=== PATIENT | female | born 1980 | race Caucasian/White ===

== ENCOUNTER 2016-05-27 18:37 | Emergency (ER) | payer OTHER ==
[2016-05-27 19:40] VITALS: BP 119/69
--- NOTE | 2016-05-27 19:55 | UC ---
Respiratory Complaint HPI - HPI Summary HPI Summary: 36 yo female with a 2week hx of nasal congestion/sinus pain/cough/sore throat bilateral ear pressure/popping no n/v/d - History of Current Complaint Chief Complaint: UCGeneralIllness Stated Complaint: SORE THROAT/COUGH Time Seen by Provider: 05/27/16 19:46 Hx Last Menstrual Period: 05/23/16 - Allergies/Home Medications Allergies/Adverse Reactions: Allergies Allergy/AdvReac Type Severity Reaction Status Date / Time Imipramine Allergy Severe shaking Verified 05/27/16 19:40 Quetiapine [From Seroquel] Allergy Shakes Verified 05/27/16 19:40 PMH/Surg Hx/FS Hx/Imm Hx Endocrine History Of: Denies: Diabetes, Thyroid Disease Cardiovascular History Of: Denies: Cardiac Disorders, Hypertension Respiratory History Of: Denies: Asthma Psychological History Of: Reports: Anxiety, Depression - Surgical History Surgical History: Yes Surgery Procedure, Year, and Place: tubal ligation. 2 hernia repairs. 2 termination of pregnancies - Family History Known Family History: Positive: Diabetes, Other - asthma in the family Negative: Cardiac Disease - Social History Alcohol Use: Occasionally Substance Use Type: None Smoking Status (MU): Light Every Day Tobacco Smoker Type: Cigarettes Amount Used/How Often: 3-5 cigarettes / day Have You Smoked in the Last Year: Yes - Immunization History Most Recent Influenza Vaccination: "A few years ago" Most Recent Tetanus Shot: "Unable to recall" Most Recent Pneumonia Vaccination: NONE Review of Systems Constitutional: Fatigue Skin: Negative Eyes: Negative ENT: Sore Throat, Ear Ache, Nasal Discharge Respiratory: Cough Cardiovascular: Negative Gastrointestinal: Negative Genitourinary: Negative Motor: Negative Neurovascular: Negative Musculoskeletal: Negative Neurological: Negative Psychological: Negative All Other Systems Reviewed And Are Negative: Yes Physical Exam Triage Information Reviewed: Yes Appearance: Well-Appearing, No Pain Distress, Well-Nourished Vital Signs: Initial Vital Signs Temp 99.0 F 05/27/16 19:36 Pulse 76 05/27/16 19:36 Resp 16 05/27/16 19:36 BP 119/69 05/27/16 19:36 Pulse Ox 99 05/27/16 19:36 Vital Signs Reviewed: Yes Eyes: Positive: Conjunctiva Clear ENT: Positive: Hearing grossly normal, Pharynx normal, Nasal congestion, Nasal drainage, TM bulging, Other: - bilateral max and ethmoid sinus tenderness. Negative: Tonsillar swelling, Tonsillar exudate, Trismus, Muffled/hoarse voice Neck: Positive: Supple, Nontender, No Lymphadenopathy Respiratory: Positive: Lungs clear, Normal breath sounds, No respiratory distress Cardiovascular: Positive: RRR, No Murmur, Pulses Normal Musculoskeletal: Positive: ROM Intact, No Edema Neurological Exam: Normal Neurological: Positive: Alert, Muscle Tone Normal Psychological Exam: Normal Skin Exam: Normal UC Diagnostic Evaluation - Laboratory O2 Sat by Pulse Oximetry: 99 Respiratory Course/Dx - Differential Dx/Diagnosis Provider Diagnoses: acute sinusitis Discharge - Discharge Plan Condition: Stable Disposition: HOME Prescriptions: Cefuroxime Axetil [Ceftin 250 MG] 250 mg PO BID #20 tab Fluticasone NASAL SPRAY 50MCG* [Flonase NASAL SPRAY 50MCG*] 2 spray BOTH NARES DAILY #1 btl Patient Education Materials: Sinusitis (ED) Referrals: Katlyn Leal MD [Primary Care Provider] - 6 Days (if not better)
== END 2016-05-27 20:04 | disposition home or self-care (01) ==
LOC: UCCORT 18:37
DX: J01.90 Acute sinusitis, unspecified (principal); F17.210 Nicotine dependence, cigarettes, uncomplicated
CPT/HCPCS: 99212; G0463

== ENCOUNTER 2017-02-12 15:52 | Emergency (ER) | payer OTHER ==
--- NOTE | 2017-02-12 17:08 | UC ---
Throat Pain/Nasal Waylon HPI - HPI Summary HPI Summary: Pt c/o right side ROQUE, nasal congestion, sinus pressure, cough and PND X 1 week. - History of Current Complaint Chief Complaint: UCRespiratory Stated Complaint: SINUS,COUGH Time Seen by Provider: 02/12/17 17:00 Hx Obtained From: Patient Hx Last Menstrual Period: 01/30/17 ?: No Onset/Duration: Gradual Onset, Lasting Days - 7, Still Present, Worse Since - onset Severity: Moderate Associated Signs & Symptoms: Positive: Fever - Epiglottits Risk Factors Epiglottis Risk Factors: Negative - Allergies/Home Medications Allergies/Adverse Reactions: Allergies Allergy/AdvReac Type Severity Reaction Status Date / Time Imipramine Allergy Severe shaking Verified 02/12/17 15:57 Quetiapine [From Seroquel] Allergy Shakes Verified 02/12/17 15:57 Home Medications: Home Medications Ketorolac TAB * [Toradol TAB *] 10 mg PO ONCE 02/12/17 [History Confirmed ] PMH/Surg Hx/FS Hx/Imm Hx Previously Healthy: Yes - Surgical History Surgical History: Yes Surgery Procedure, Year, and Place: tubal ligation. 2 hernia repairs. 2 termination of pregnancies - Family History Known Family History: Positive: Diabetes, Other - asthma in the family Negative: Cardiac Disease - Social History Occupation: Works From/At Home Lives: With Family Alcohol Use: None Substance Use Type: None Smoking Status (MU): Light Every Day Tobacco Smoker Type: Cigarettes Amount Used/How Often: 1/4 PPD Length of Time of Smoking/Using Tobacco: Since Age 11 Have You Smoked in the Last Year: Yes - Immunization History Most Recent Influenza Vaccination: Not the 2016/2017 Season Most Recent Tetanus Shot: "Unable to recall" Most Recent Pneumonia Vaccination: NONE Review of Systems Constitutional: Chills Skin: Negative Eyes: Negative ENT: Sinus Congestion, Sinus Pain/Tenderness Respiratory: Cough Cardiovascular: Negative Gastrointestinal: Negative Genitourinary: Negative Motor: Negative Neurovascular: Negative Musculoskeletal: Negative Neurological: Headache Psychological: Negative Is Patient Immunocompromised?: No All Other Systems Reviewed And Are Negative: Yes Physical Exam Triage Information Reviewed: Yes Appearance: Ill-Appearing Vital Signs: Initial Vital Signs Temp 99.2 F 02/12/17 15:55 Pulse 110 02/12/17 15:55 Resp 18 02/12/17 15:55 BP 133/75 02/12/17 15:55 Pulse Ox 98 02/12/17 15:55 Vital Signs Reviewed: Yes Eye Exam: Normal, Other - PERRLA EOMI ENT: Positive: Nasal congestion, Other: - Sinus tenderness, right frontal Dental Exam: Normal Neck exam: Normal Respiratory Exam: Normal Cardiovascular Exam: Normal Cardiovascular: Positive: Tachycardia Musculoskeletal Exam: Normal Neurological Exam: Normal Psychological Exam: Normal Skin Exam: Normal Throat Pain/Nasal Course/Dx - Differential Dx/Diagnosis Differential Diagnosis/HQI/PQRI: Sinusitis, URI Provider Diagnoses: Sinusitis. cough Discharge - Discharge Plan Condition: Stable Disposition: HOME Prescriptions: Albuterol HFA INHALER* [Ventolin HFA Inhaler*] 1 - 2 puff INH Q6H PRN #1 mdi PRN Reason: Sob/Wheezing Amoxicillin PO (*) [Amoxicillin 875 MG (*)] 875 mg PO Q12H #20 tab Benzonatate CAP* [Tessalon 100 MG CAP*] 100 mg PO Q8H PRN #21 cap PRN Reason: Cough predniSONE TAB* [Deltasone TAB*] 30 mg PO DAILY #9 tab Patient Education Materials: Sinusitis (ED) Referrals: Katlyn Leal MD [Primary Care Provider] - If Needed
[2017-02-12] MEDS ORDERED: Ketorolac INJ* 60 MG/2 ML VIAL IM ONE (17:14)
[2017-02-12 18:07] VITALS: BP 144/93
== END 2017-02-12 18:10 | disposition home or self-care (01) ==
LOC: UCCORT 15:52
DX: J32.8 Other chronic sinusitis (principal); R05 Cough; F17.210 Nicotine dependence, cigarettes, uncomplicated; Z88.8 Allergy status to other drugs, medicaments and biological substances
CPT/HCPCS: 99212; G0463; J1885

== ENCOUNTER 2017-04-11 21:36 | Emergency (ER) | payer OTHER ==
[2017-04-11 21:50] VITALS: BP 131/85
[2017-04-11] MEDS ORDERED: Amoxicillin/Clavulanate TAB* 875 MG PO ONE (22:13)
[2017-04-11] MEDS ORDERED: LoraTADine TAB(NF) 10 MG TAB (AUTOSUB to CETIRIZINE) PO ONE (22:13)
[2017-04-11] MEDS ORDERED: Lidocaine 2% VISCOUS* 15 ML UDC SWISH SPIT ONE (22:13)
--- NOTE | 2017-04-11 22:23 | UC ---
Throat Pain/Nasal Waylon HPI - History of Current Complaint Chief Complaint: UCGeneralIllness Stated Complaint: COUGH,SORE THROAT Time Seen by Provider: 04/11/17 21:53 Hx Obtained From: Patient Hx Last Menstrual Period: 04/09/17 Onset/Duration: Sudden Onset Severity: Moderate Pain Scale Used: 0-10 Numeric - 5 Cough: Nonproductive - Allergies/Home Medications Allergies/Adverse Reactions: Allergies Allergy/AdvReac Type Severity Reaction Status Date / Time Imipramine Allergy Severe shaking Verified 04/11/17 21:50 Quetiapine [From Seroquel] Allergy Shakes Verified 04/11/17 21:50 Home Medications: Home Medications Dextromethorphan-Guaifenesin [Guaifenesin/Dextromethorp 20-400 mg] 1 tab PO ONCE 04/11/17 [History Confirmed 04/11/17] Diphenhydramine HCl [Benadryl Allergy 25 MG CAP] 50 mg PO ONCE 04/11/17 [ History Confirmed 04/11/17] Naproxen Sodium [Naproxen Sodium 220 mg cap] 440 mg PO DAILY 04/11/17 [History Confirmed 04/11/17] PMH/Surg Hx/FS Hx/Imm Hx Previously Healthy: Yes - Surgical History Surgical History: Yes Surgery Procedure, Year, and Place: tubal ligation. 2 hernia repairs. 2 termination of pregnancies - Family History Known Family History: Positive: Diabetes, Other - asthma in the family Negative: Cardiac Disease - Social History Alcohol Use: Rare Substance Use Type: None Smoking Status (MU): Light Every Day Tobacco Smoker Type: Cigarettes Amount Used/How Often: 1/4 PPD Length of Time of Smoking/Using Tobacco: Since Age 11 Have You Smoked in the Last Year: Yes - Immunization History Most Recent Influenza Vaccination: Not the 2017/2017 Season Most Recent Tetanus Shot: "Unable to recall" Most Recent Pneumonia Vaccination: NONE Review of Systems All Other Systems Reviewed And Are Negative: Yes Physical Exam Triage Information Reviewed: Yes Vital Signs: Initial Vital Signs Temp 36.6 C 04/11/17 21:44 Pulse 82 04/11/17 21:44 Resp 28 04/11/17 21:44 BP 131/85 04/11/17 21:44 Pulse Ox 98 04/11/17 21:44 Vital Signs Reviewed: Yes Eye Exam: Normal ENT: Positive: Pharyngeal erythema, Nasal congestion, Nasal drainage, Sinus tenderness Dental Exam: Normal Neck exam: Normal Neck: Positive: 1 Respiratory Exam: Normal Cardiovascular Exam: Normal Abdominal Exam: Normal Musculoskeletal Exam: Normal Neurological Exam: Normal Psychological Exam: Normal Skin Exam: Normal Throat Pain/Nasal Course/Dx - Differential Dx/Diagnosis Provider Diagnoses: sinusitis Discharge - Discharge Plan Condition: Stable Disposition: HOME Prescriptions: Amoxicillin/Clavulanate TAB* [Augmentin TAB 875*] 875 mg PO BID #20 tab LoraTADine TAB(NF) [Claritin 10 MG TAB(NF)] 10 mg PO DAILY #30 tab Magic M W2 Edvin/Maal/Nyst/Lido* 5 ml SWISH SPIT QID PRN #120 ml PRN Reason: Pain Patient Education Materials: Pharyngitis (ED) Referrals: Katlyn Leal MD [Primary Care Provider] -
== END 2017-04-11 22:22 | disposition home or self-care (01) ==
LOC: UCCORT 21:36
DX: J32.9 Chronic sinusitis, unspecified (principal); Z72.0 Tobacco use
CPT/HCPCS: 87651; 99212; A9270-GY; G0463

== ENCOUNTER 2018-02-02 15:08 | Emergency (ER) | payer OTHER ==
--- OUTSIDE RECORDS SUMMARY | 2018-02-02 15:27 | XMS REPORT ---
:1980 External Reference #:[id number] Author Organization [employer] Address [address] [facility] [place] [address] Phone [phone] Care Team Providers Name Role Phone Rc Galvez FNP Primary Care Physician Unavailable Payers Type Date Identification Numbers Payment Provider Subscriber Commercial Effective: Policy Number: Truman Payne 2010 [id number] Group Number: [id number] [address] PayID: [id number] [place] [address] Problems Date Description Provider Status Onset: 04/25/2014 Refractory migraine Arielle Chau M.D. 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 Cigarette Use Current Cigarette Smoker 5-10 Cigarettes Daily ETOH Use Denies alcohol use Recreational Drug Use Denies Drug Use Smoking Light tobacco smoker (10 or fewer cigarettes/day) Daily Caffeine Consumes on average 5 cups of regular coffee per day Exercise Type/Frequency Does not exercise Allergies, Adverse Reactions, Alerts Date Description Reaction Status Severity Comments 01/10/2014 Imipramine active 01/20/2017 Seasonal And Environmental active 02/02/2018 Seroquel active Medications Medication Date Status Form Strength Qnty SIG Indications Ordering Provider Naratriptan HCL 10/10 Active Tablets 2.5mg 12tab 1 tab by G43.919 Arielle /Vincent s mouth as Cow[place], needed for M.D. migraine, may repeat in 4 hours. max of 2 tabs per 24 hours; maximum 2 days a week. Ketorolac 10/26 Active Tablets 10mg 10tab take 1 by Arielle Tromethamine s mouth every [place], 8 hours as M.D. needed for migraine. take with food. do not take with other Nsaid Ondansetron HCL 05/26 Active Tablets 4mg 60tab one to two Arielle s by mouth [place], every 8 M.D. hours as needed for nausea Trazodone HCL Active Tablets 50mg 1/2-1 tabs Unknown / po qhs Clonidine HCL Active Tablets 0.1mg 1 by mouth Unknown three a day Chlorpromazine Active Tablets 25mg one tablet Unknown bid prn Topiramate 05/26 Hx Tablets 25mg 120ta take 1 by G43.9 Arielle bs mouth at [place], - night x 7 M.D. increase by 1 tablet every 7 days to maximum of 100mg at bedtime Almotriptan 01/25 Hx Tablets 6.25mg 12tab take 1 by G43.91 Arielle Malate s mouth if [place], - needed for M.D. 01/27 migraine, may repeat after 2 hours; maximum 2 in 24 hours, maximum 2 days a week Frovatriptan 01/20 Hx Tablets 2.5mg 12tab take 1 by G43. Arielle Succinate s mouth as [place], - needed for M.D. 01/25 migraine, may repeat after 2 hours, maximum 2 in 24 hours. Tizanidine HCL 07/09 Hx Capsules 4mg 60cap take 1 G43. Arielle s capsule by Isac, - mouth at M.D. 07/09 bedtime 2-3 days, then may increase to 2 tablets at bedtime Tizanidine HCL 07/09 Hx Capsules 2mg 60cap take 1 to by G43. Arielle s mouth at bed Eloydery, - time, if no M.D. 05/25 after 2-3 days, may increase to 2 tablets at night time.-takes 1 po prn Relpax 03/30 Hx Tablets 40mg 6tabs take 1 G43.9 Arielle tablet by Isac, - mouth as M.D. 01/20 needed for migraine may repeat 1 time after 2 hours (max 2 days per week) Topamax 02/08 Hx Tablets 50mg 30tab 1 by mouth Jenna M. s every night Shell, - at bedtime M.D. 05/25 (with 100mg /2017 pills Ketorolac 02/08 Hx Tablets 10mg 10tab take 1 by Eva Tromethamine s mouth every Gnadt, [employer] - 8 hours as 07/24 needed for migraine. take with food. Not Taking While Taking Naprosyn Topamax 09/09 Hx Tablets 100mg 60tab 1 by mouth Jenna M. s twice a day Shell, - M.D. 05/25 Topamax 09/09 Hx Tablets 25mg 30tab 1 po qhs, Arielle s with 100mg [place], - tab M.D. 02/08 Ketorolac 05/03 Hx Tablets 10mg 10tab take 1 by Kiran Celestinmethamine s mouth every Travis, - 6 hours as M.D. 05/03 needed for migraine. take with food. Topamax 03/03 Hx Tablets 50mg 150ta Take two bs tabs po each Cow[place]y, - morning and M.D. 09/09 three tabs /2012 po qhs Oxycodone/Acetami Hx Tablets 5-325mg Unknown nophen / - 06/23 Cetirizine HCL Hx Tablets 10mg 1 tab po qhs Nash, /0000 Nidia López MD 12/02 Naproxen Hx Tablets 500mg Nash, /0000 Nidia López MD 07/24 Pantoprazole Hx Tablets 40mg 60tab 1 by mouth Jose Armando Cao / DR gray twice daily Nidia López MD 07/02 Chlorpromazine Hx Tablets 25mg 1 po in the Unknown HCL / Am and 2 po - in the PM. 05/21 Clonazepam 00/00 Hx Tablets 0.5mg Unknown /0000 - 06/23 Sertraline HCL Hx Tablets 100mg 2 po qd Unknown / - 11/06 Azithromycin 00/00 Hx Tablets 250mg Cao, /0000 Nidia López MD 06/23 Trazodone HCL 00/00 Hx Tablets 150mg Unknown /0000 - 06/23 Topiramate 00/00 Hx Tablets 50mg [place], /0000 MD Arielle - 06/23 Cyclobenzaprine 00/ Hx Tablets 5mg Cao, HCL / Nidia López MD 06/23 Topiramate 00/00 Hx Tablets 100mg [place], /0000 MD Arielle - 06/23 Tramadol HCL 00/00 Hx Tablets 50mg Cao, /0000 Nidia López MD 06/23 Chlorpromazine 00/00 Hx Tablets 25mg Unknown HCL /0000 - 06/23 Chlorpromazine 00/00 Hx Tablets 50mg Unknown HCL 0000 - 06/23 Topiramate 00/00 Hx Tablets 25mg [place], /0000 MD Arielle - 06/23 Sertraline HCL 00/00 Hx Tablets 50mg Unknown - 06/23 Ketorolac 00/ Hx Tablets 10mg [place], Tromethamine / MD Arielle - 06/23 Trazodone HCL 00/00 Hx Tablets 50mg Unknown - 06/23 Fluconazole 00/00 Hx Tablets 150mg Unknown - 11/06 Terconazole / Hx Cream 0.8% [place], MD Arielle - 06/23 Ventolin HFA / Hx Aerosol 108(90Bas Farenga, /0000 e) POLY Scott - mcg/Act 08/19 Extra Action 00/ Hx Syrup 100-10mg/ enga, Cough /0000 5ML POLY Scott - 06/23 Amoxicillin/Clavu /00 Hx Tablets 875-125mg cynthiaa, lanate Potassium /0000 POLY Scott - 06/23 Ziprasidone HCL 00/ Hx Capsules 20mg Unknown / - 06/23 Topiramate 00/00 Hx Tablets 100mg Unknown / - 06/23 Topiramate 00/00 Hx Tablets 25mg Unknown / - 06/23 Zolpidem Tartrate 00/00 Hx Tablets 10mg Unknown /0000 - 01/10 Omeprazole 00/00 Hx Capsules 20mg Unknown /0000 - 06/23 Oxycodone/Acetami 00/00 Hx Tablets 5-325mg take 1 to 2 Unknown nophen /0000 tablets by - mouth every 01/10 4 hours needed for pain maximum Ra One Daily 00/00 Hx Tablets Unknown Womens/Vitamin /0000 D-3 - 12/02 Ra One Daily 00/00 Hx Tablets Wilberert, Chongs/Vitamin /0000 POLY Nix D-3 - 06/23 Divalproex Sodium 00/00 Hx Tablets 500mg Unknown ER /0000 ER 24HR - 06/23 Cyclobenzaprine 00/00 Hx Tablets 5mg take 1 Unknown HCL /0000 tablet three - times a day 01/10 if needed Clonazepam 00/ Hx Tablets 0.5mg take 1 Unknown /0000 tablet po - tid prn 11/06 Ziprasidone HCL 00/00 Hx Capsules 80mg Eloydery, /0000 MD Arielle - 06/23 Ziprasidone HCL 00/00 Hx Capsules 80mg take 1 Unknown /0000 capsule by - mouth twice 01/10 a Haloperidol 00/00 Hx Tablets 1mg Unknown /0000 - 06/23 Haloperidol 00/00 Hx Tablets 1mg Unknown /0000 - 07/24 Haloperidol 00/00 Hx Tablets 5mg Vanckert, /0000 POLY Nix - 06/23 Haloperidol 00/00 Hx Tablets 5mg Unknown /0000 - 07/24 Divalproex Sodium 00/00 Hx Tablets 500mg take 2 Unknown ER /0000 ER 24HR tablets - every 01/10 morning and 3 tablets every evening Diphenhydramine 00/00 Hx Capsules 25mg take 1 Unknown HCL /0000 capsule once - daily 01/10 Diphenhydramine 00/00 Hx Capsules 25mg Wilberert, HCL /0000 POLY Nix - 06/23 Tramadol HCL 00/00 Hx Tablets 50mg take 1-2 Cow[place]y, /0000 tablets MD Arielle - every 6 / hours needed for pain maximum daily dose o Omeprazole 00/00 Hx Capsules 40mg Unknown /0000 - 06/23 Omeprazole 00/00 Hx Capsules 40mg Cao, / DR Nidia López MD 06/23 Cyclobenzaprine Hx Tablets 5mg take one at Unknown HCL /0000 bedtime as - needed 08/19 Propranolol HCL Hx Tablets 10mg 3 po at Unknown /0000 night.. - 05/21 Bupropion HCL ER Hx Tablets 300mg 1 po in the Unknown (SR) /0000 ER 12HR Am - 05/25 Hydroxyzine Hx Capsules 50mg Take One Unknown Pamoate /0000 Capsule By - Mouth Twice 05/25 A Day as /2018 Needed Buspirone HCL Hx Tablets 5mg 1 by mouth Unknown /0000 twice a day - 10/14 Medications Administered in Office Medication Date Status Form Strength Qnty SIG Indications Ordering Provider Injection 05/26 Administered Injection Arielle Onabotulinumtoxin /2017 Cowdery, A, 1 Unit M.D. Injection 01/27 Administered Injection Arielle Onabotulinumtoxin /2016 Cowdery, A, 1 Unit M.D. Injection 01/27 Administered Injection Arielle Onabotulinumtoxin /2016 Cowdery, A, 1 Unit M.D. Injection 10/15 Administered Injection Arielle Onabotulinumtoxin /2016 Cowdery, A, 1 Unit M.D. Injection 07/09 Administered Injection Arielle Onabotulinumtoxin /2016 Cowdery, A, 1 Unit M.D. Injection 03/21 Administered Injection Arielle Onabotulinumtoxin /2015 Burchill, A, 1 Unit [employer] Injection 12/03 Administered Injection Arielle Onabotulinumtoxin /2015 Cowdery, A, 1 Unit M.D. Injection 08/20 Administered Injection Arielle Onabotulinumtoxin /2015 [place], A, 1 Unit M.D. Injection 05/22 Administered Injection Arielle Onabotulinumtoxin /2015 Cowdery, A, 1 Unit M.D. Injection 02/13 Administered Injection Arielle Onabotulinumtoxin /2014 Cowdery, A, 1 Unit M.D. Injection 11/07 Administered Injection Arielle Onabotulinumtoxin /2014 Cowdery, A, 1 Unit M.D. Injection 07/25 Administered Injection Arielle Onabotulinumtoxin /2014 Cowdery, A, 1 Unit M.D. Injection 04/25 Administered Injection Arielle Onabotulinumtoxin /2014 Cowdery, A, 1 Unit M.D. Injection 01/10 Administered Injection Arielle Onabotulinumtoxin /2013 Cow[place]y, A, 1 Unit M.D. Injection 10/04 Administered Injection Arielle Onabotulinumtoxin /2013 Cowdery, A, 1 Unit M.D. Injection 06/21 Administered Injection Arielle Onabotulinumtoxin /2013 [place]dery, A, 1 Unit M.D. Injection 03/22 Administered Injection Arielle Onabotulinumtoxin /2012 Cowdery, A, 1 Unit M.D. Injection 12/07 Administered Injection Arielle Onabotulinumtoxin /2012 Cowdery, A, 1 Unit M.D. Injection 08/31 Administered Injection Arielle Onabotulinumtoxin /2012 Cowdery, A, 1 Unit M.D. Injection 05/25 Administered Injection Arielle Onabotulinumtoxin /2012 Cowdery, A, 1 Unit M.D. Vital Signs Date Vital Result Comment 02/02/2018 Height 65 inches 5'5" Weight 172.00 lb Heart Rate 96 /min BP Systolic 148 mmHg BP Diastolic 82 mmHg BMI (Body Mass Index) 28.6 kg/m2 05/26/2017 Height 65 inches 5'5" Weight 164.00 lb Heart Rate 79 /min BP Systolic Sitting 126 mmHg BP Diastolic Sitting 70 mmHg Respiratory Rate 16 /min Pain Level 3 O2 % BldC Oximetry 98 % Ra BMI (Body Mass Index) 27.3 kg/m2 01/27/2017 Height 65 inches 5'5" Weight 63.00 lb Respiratory Rate 16 /min Pain Level 2 BMI (Body Mass Index) 10.5 kg/m2 01/20/2017 Weight 163.00 lb Heart Rate 100 /min BP Systolic Sitting 110 mmHg BP Diastolic Sitting 80 mmHg Respiratory Rate 16 /min Pain Level 4 O2 % BldC Oximetry 98 % 10/15/2016 Height 65 inches 5'5" Weight 167.00 lb Heart Rate 64 /min BP Systolic Sitting 98 mmHg BP Diastolic Sitting 62 mmHg Respiratory Rate 14 /min BMI (Body Mass Index) 27.8 kg/m2 07/09/2016 Height 65 inches 5'5" Weight 156.00 lb Heart Rate 80 /min BP Systolic Sitting 102 mmHg BP Diastolic Sitting 70 mmHg Respiratory Rate 14 /min BMI (Body Mass Index) 26.0 kg/m2 03/21/2016 Height 65 inches 5'5" Weight 148.00 lb Heart Rate 100 /min BP Systolic Sitting 124 mmHg BP Diastolic Sitting 78 mmHg BMI (Body Mass Index) 24.6 kg/m2 12/04/2015 Height 65 inches 5'5" Weight 155.00 lb Heart Rate 66 /min BP Systolic Sitting 96 mmHg BP Diastolic Sitting 70 mmHg BMI (Body Mass Index) 25.8 kg/m2 08/21/2015 Height 65 inches 5'5" Weight 163.00 lb Heart Rate 68 /min BP Systolic Sitting 112 mmHg BP Diastolic Sitting 86 mmHg BMI (Body Mass Index) 27.1 kg/m2 2015 Height 65 inches 5'5" Weight 175.00 lb Heart Rate 80 /min BP Systolic Sitting 108 mmHg BP Diastolic Sitting 82 mmHg BMI (Body Mass Index) 29.1 kg/m2 02/13/2015 Height 65 inches 5'5" Weight 160.00 lb Heart Rate 104 /min BP Systolic Sitting 112 mmHg BP Diastolic Sitting 84 mmHg BMI (Body Mass Index) 26.6 kg/m2 11/07/2014 Height 65 inches 5'5" Weight 160.00 lb Heart Rate 78 /min BP Systolic Sitting 128 mmHg BP Diastolic Sitting 82 mmHg BMI (Body Mass Index) 26.6 kg/m2 07/25/2014 Height 65 inches 5'5" Heart Rate 80 /min BP Systolic Sitting 90 mmHg BP Diastolic Sitting 70 mmHg 04/25/2014 Height 65 inches 5'5" Weight 160.00 lb Heart Rate 68 /min BP Systolic Sitting 98 mmHg BP Diastolic Sitting 70 mmHg BMI (Body Mass Index) 26.6 kg/m2 01/10/2014 Weight 160.00 lb Heart Rate 78 /min BP Systolic Sitting 122 mmHg BP Diastolic Sitting 80 mmHg Results Description No Information Procedures Date CPT Code Description Status 05/26/2017 27980 Chemodenervation Of Muscles Innervated By Facial Completed Nerves, Bilat 01/27/2017 75852 Chemodenervation Of Muscles Innervated By Facial Completed Nerves, Bilat 10/15/2016 31715 Chemodenervation Of Muscles Innervated By Facial Completed Nerves, Bilat 07/09/2016 61100 Chemodenervation Of Muscles Innervated By Facial Completed Nerves, Bilat 03/21/2016 26649 Chemodenervation Of Muscles Innervated By Facial Completed Nerves, Bilat 12/04/2015 14708 Chemodenervation Of Muscles Innervated By Facial Completed Nerves, Bilat 08/21/2015 08078 Chemodenervation Of Muscles Innervated By Facial Completed Nerves, Bilat 2015 12714 Chemodenervation Of Muscles Innervated By Facial Completed Nerves, Bilat 02/13/2015 12298 Chemodenervation Of Muscles Innervated By Facial Completed Nerves, Bilat 11/07/2014 50570 Chemodenervation Of Muscles Innervated By Facial Completed Nerves, Bilat 07/25/2014 77780 Chemodenervation Of Muscles Innervated By Facial Completed Nerves, Bilat 04/25/2014 08832 Chemodenervation Of Muscles Innervated By Facial Completed Nerves, Bilat 01/10/2014 24124 Chemodenervation Of Muscles Innervated By Facial Completed Nerves, Bilat 10/04/2013 31180 Chemodenervation Of Muscles Innervated By Facial Completed Nerves, Bilat 08/03/2013 07306 EEG Recording Awake & Drowsy Completed 06/21/2013 20355 Chemodenervation Of Muscles Innervated By Facial Completed Nerves, Bilat 03/22/2013 91336 Chemodenervation Of Muscles Innervated By Facial Completed Nerves, Bilat 12/07/2012 98951 Chemodenervation Of Muscles Innervated By Facial Completed Nerves, Bilat 08/31/2012 60216 Chemodenervation Of Muscles Innervated By Facial Completed Nerves, Bilat 05/25/2012 89990 Chemodenervation Of Muscles Innervated By Facial Completed Nerves, Bilat Encounters Type Date Location Provider CPT E/M Dx Office Visit 01/20/2017 Iram Chau M.D. 05920 G43.919 1:00p [facility] Office Visit 07/09/2016 Venu Chau M.D. 16727 G43.919 2:00p [facility] M62.838 Office Visit 06/21/2013 2:15p Iram Chau 22848 346.91 [facility] [place] 780.1 368.16 Office Visit 02/08/2013 3:00p Iram Chau 40185 346.01 [facility] [place] Office Visit 08/31/2012 3:15p Iram Chau, 42474 346.91 [facility] M.D. Office Visit 05/25/2012 3:00p [place]/Venu Chau, 52469 346.91 [facility] M.D. Office Visit 03/03/2012 1:00p [place]/Venu Robles, 15701 346.91 [facility] M.D. Office Visit 12/24/2011 1:00p [place]/Venu Robles, 60301 346.90 [facility] M.D. Office Visit 11/28/2011 9:00a [place]/Venu Robles, 84599 346.90 [facility] M.D. Plan of Care Future Appointment(s):08/10/2018 2:00 pm - Arielle Chau M.D. at [facility]05/11/2018 2:00 pm - Arielle Chau M.D. at [facility]02/02/2018 - Arielle Chau M.D.G43.919 Migraine, unsp, intractable, without status migrainosusFollow up:every 3 months for botox
[2018-02-02 15:32] VITALS: BP 128/81
--- NOTE | 2018-02-02 15:43 | UC ---
Lower Extremity/Ankle HPI - HPI Summary HPI Summary: Patient presents for evaluation of wound to her left foot. Patient states his been about a month. Patient states his itching. 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 There is a time. Patient denies any paresthesias. Patient has any weakness. Patient has not put anything treatment. Patient without any other complaints. Asians reviewed this visit - History of Current Complaint Chief Complaint: UCSkin Stated Complaint: SKIN CONCERN - LEFT FOOT Time Seen by Provider: 02/02/18 15:33 Hx Obtained From: Patient Hx Last Menstrual Period: 01/14/18 Pain Intensity: 0 - Allergies/Home Medications Allergies/Adverse Reactions: Allergies Allergy/AdvReac Type Severity Reaction Status Date / Time imipramine Allergy Shakes Verified 02/02/18 15:27 quetiapine [From Seroquel] Allergy Shakes Verified 02/02/18 15:27 Home Medications: Home Medications chlorproMAZINE TAB* [Thorazine TAB*] 25 mg PO TID PRN 02/02/18 [History Confirmed 02/02/18] traZODone TAB* [Desyrel TAB*] 50 mg PO BEDTIME 02/02/18 [History Confirmed 02/02] PMH/Surg Hx/FS Hx/Imm Hx Previously Healthy: Yes Psychological History: Depression - Surgical History Surgical History: Yes Surgery Procedure, Year, and Place: tubal ligation. 2 hernia repairs. 2 termination of pregnancies - Family History Known Family History: Positive: Diabetes, Other - asthma in the family Negative: Cardiac Disease - Social History Lives: With Family Alcohol Use: None Substance Use Type: Marijuana - daily Substance Use Comment - Amount & Last Used: daily Smoking Status (MU): Light Every Day Tobacco Smoker Type: Cigarettes Amount Used/How Often: 1/4 PPD Length of Time of Smoking/Using Tobacco: Since Age 11 Have You Smoked in the Last Year: Yes - Immunization History Most Recent Influenza Vaccination: Not the 2017/2018 Season Most Recent Tetanus Shot: "Unable to recall" Most Recent Pneumonia Vaccination: NONE Review of Systems Constitutional: Negative Skin: Other - bottom left foot All Other Systems Reviewed And Are Negative: Yes Physical Exam - Summary Physical Exam Summary: Vital Signs Reviewed: Yes A+Ox3, no distress Eyes: Conjunctiva Clear ENT: Hearing grossly normal neck: supple Respiratory: Positive: No respiratory distress, No accessory muscle use Cardiovascular: skin color reflect adequate perfusion Musculoskeletal Exam: MALDONADO x 4 without difficulty Neurological: Positive: Alert, ambulatory without difficulty Psychological: Positive: Normal Response To Family Skin: Positive: left foot - pt with 2x2cm area of dry, flaking skin, erythema base no drainage no tenderness, skin flaking. pt with other patches or dry, flaking skin without erythema other spots on foot Triage Information Reviewed: Yes Vital Signs: Initial Vital Signs Temp 98.4 F 02/02/18 15:25 Pulse 81 02/02/18 15:25 Resp 16 02/02/18 15:25 BP 128/81 02/02/18 15:25 Pulse Ox 100 02/02/18 15:25 Lower Extremity Course/Dx - Course Course Of Treatment: H and presents to urgent care with a 2 x 2 centimeter area of apparent tinea pedis on her left foot. Patient works at a [employer] and her feet are frequently wet. Recommend patient dry completely. Patient given topical cream to apply twice a day for 14 days. Patient recommended follow up with primary doctor. Patient instructed to wash with warm soapy water and dry completely. Cover with a bandage while at work. Remove wet shoes and socks as soon as possible. Patient stated understanding agreement with plan. - Differential Dx/Diagnosis Provider Diagnoses: tinea pedis Discharge - Sign-Out/Discharge Documenting (check all that apply): Patient Departure All imaging exams completed and their final reports reviewed: No Studies - Discharge Plan Condition: Stable Disposition: HOME Prescriptions: Tolnaftate 1% CREAM* [Tinactin 1% CREAM*] 1 applic TOPICAL BID #1 tube Patient Education Materials: Athlete's Foot (ED) Referrals: Fidelia Galvez NP [Primary Care Provider] - Additional Instructions: - apply cream to your foot 2 times a day for 14 days. - keep wound covered during the day. Make sure you completly dry your foot after showers and when your feet get wet - contact your doctor to schedule a follow-up appointment in 8-10 days. Contact your doctor or return with questions or concerns - Billing Disposition and Condition Condition: STABLE Disposition: Home
== END 2018-02-02 16:00 | disposition home or self-care (01) ==
LOC: UCCORT 15:08
DX: B35.3 Tinea pedis (principal); F32.9 Major depressive disorder, single episode, unspecified; F17.210 Nicotine dependence, cigarettes, uncomplicated; F12.90 Cannabis use, unspecified, uncomplicated; Z88.8 Allergy status to other drugs, medicaments and biological substances
CPT/HCPCS: 99212; G0463

== ENCOUNTER 2018-03-08 12:01 | Emergency (ER) | payer OTHER ==
--- OUTSIDE RECORDS SUMMARY | 2018-03-08 12:11 | XMS REPORT ---
:1980 External Reference #:[id number] Author Organization [facility] 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 Active Onset: 07/17/2015 Bipolar disorder Doc Hoyos MD Active Onset: 07/17/2015 Gastroesophageal reflux disease Doc Hoyos MD Active Note: upper to D4 Bx 2015 Onset: 07/17/2015 Obesity Doc Hoyos MD Active Onset: 07/17/2015 Allergic rhinitis Doc Hoyos MD Active Onset: 10/22/2016 Heartburn Henry Frost MD Active Onset: 10/22/2016 Chronic idiopathic constipation Henry Frost MD Active Onset: 10/06/2017 Substance abuse Rc Galvez FNP Active Note: Document: 09/25/17 - Hospital ER/Urgent Care RPT Document: 09/26/17 - Consultation-Signed Document: 09/26/17 - ED Provider Note-Signed Document: - Hospital ER/Urgent Care RPT Onset: 12/01/2017 Tobacco user Rc Galvez FNP Active Onset: 10/22/2016 Nausea and vomiting Henry Frost MD Resolved Resolved: 10/06/2017 Family History Date Family Member(s) Problem(s) Comments Father Depression Father Hypertension Father Heart Disease Mother Chronic Obstructive Pulmonary Disease (COPD) Onset: (age 20 Years) First Brother Colon Polyps First Brother Hypertension First Sister Hypertension Paternal Grandfather due to Lung Cancer () Paternal Grandmother Alzheimer's Disease Paternal Grandmother due to Alzheimer's () Disease Paternal Grandmother Osteoporosis Paternal Uncles Lung Cancer Social History Type Date Description Comments Marital Status Single Lives With Children X3 Lives With Alone Home Environment Lives With Boyfriend Diet Healthy, Well Balanced trying to convert to veganism Work Status Disabled ETOH Use Denies alcohol use Recreational Drug Use 2014 Opioids Smoking Light tobacco smoker (10 or fewer cigarettes/day) Recreational Drug Use 2014 Cocaine Recreational Drug Use Denies Drug Use Recreational Drug Use 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 Allergies, Adverse Reactions, Alerts Date Description Reaction Status Severity Comments 07/27/2013 Imipramine active 07/17/2015 Quetiapine active Medications Medication Date Status Form Strength Qnty SIG Indications Ordering Provider Tolnaftate 03/01 Active Cream 1% 20gm apply 1 B35.3 Nigel application MD Libby topically to affected area 2 times per day for 4 weeks for athlete's foot Nicotine 12/01 Active Gum 2mg 100un chew to F17.210 Sharona Galvez /2018 its soften one Jenniferl piece in eighATIYAP place of cigarette, then place in cheek pouch up to 10 a day Botox Active Solution 200Unit q 3 mos Unknown /0000 Rec Clonidine HCL Active Tablets 0.1mg 1 by mouth Unknown /0000 twice a day Chlorpromazine Active Tablets 25mg 1 tablet by Unknown HCL /0000 mouth twice a day as needed Ondansetron HCL Active Tablets 4mg 1 tab every Unknown /0000 8hr as needed for nausea Trazodone HCL Active Tablets 50mg take one Unknown /0000 tablet by mouth every day at bedtime Naratriptan HCL Active Tablets 2.5mg take one Unknown /0000 tablet by mouth at the first sign of migraine, may repeat after 4 hours if needed maximum daily dose=2 Ketorolac Active Tablets 10mg Take One Unknown Tromethamine /0000 Tablet By Mouth Every 8 Hours as Needed For Migraine With Ej SM Antifungal Active Cream 1% Apply Unknown Tolnaftate /0000 Topically On Affected Area Two Times A Day For 14 Days Miralax 10/22 Hx Powder [id number] 3Bott 3 cap by [email or web address] Figueroa les mouth every MD Santosh - day every 12/01 Zantac 150 10/22 Hx Tablets 150mg 30tab 1 by mouth R12 Henry Maximum Strength s every day MD Santosh - 12/01 Pantoprazole 04/23 Hx Tablets 20mg 180ta 1 by mouth Norbert Figueroa Sodium DR negrete twice a day MD Santosh Linzess 04/23 Hx Capsules 145mcg 30cap 1 by mouth K59.04 Henry s every day MD Santosh Diflucan 01/20 Hx Tablets 150mg 1tabs take 1 by Lenny mouth Jenniferl - eigh, LATRINE CLEANER 01/27 Pantoprazole 10/17 Hx Tablets 40mg 180ta take one K21.[address] negrete tablet by yvonne Roach twice a day Vistaril 10/03 Hx Capsules 25mg 60cap 1 po bid prn Romain s Rene Roach MD 12/01 Metoclopramide 10/03 Hx Tablets 5mg 360ta take one R1 MARGARET Hoyos bs tablet by yvonne Roach every 6 h as needed nausea Dexilant 10/03 Hx Capsules 60mg 180ca 1 cap twice K21.9 Romain, DR newberry a day before Doc - meals 10/17 Ondansetron 08/20 Hx Tablets 8mg 3tabs by mouth Romain Dispers every 8 h Rene Roach s.l. as 12/01 nausea Pantoprazole 08/20 Hx Tablets 40mg 180ta take one K21.[address] negrete tablet by Doc - mouth twice 10/03 a Tums 07/16 Hx Chewtabs 500mg 360un by mouth K21.9 its every 2 h as Doc - needed 12/01 heartburn Omeprazole 07/16 Hx Capsules 20mg 180ca [address] mouth [address] newberry twice a day Rene Roach MD 08/20 Golytely 07/16 Hx Solution 227.1gm 1bott drink 1 cup Z12.11 Romain Rec le every 10'; Doc, - drink half 08/19 of jug evening before the procedure, the other half the morning of the procedure Azithromycin 06/12 Hx Tablets 500mg 2tabs 2 pills at R10.30 Nash once Nidia López M.D. 07/01 Azithromycin 06/12 Hx Tablets 500mg 2tabs 2 pills at R10.30 Nash once Nidia López M.D. 07/15 Chantix 05/05 Hx Tablets 1mg 60tab 1 tab by Nash Continuing s mouth twice Nidia Pelon - a MD pedro 06/12 Antipyrine-Benzoc 04/18 Hx Solution 5.5-1.4% 14uni use in ear wil Nash ts canal every Nidia - 4 hours MD aayush 06/12 pain Cyclobenzaprine 02/11 Hx Tablets 5mg 50tab 1 by mouth Nash s three times Nidia - a day MD todd 06/12 needed Cetirizine HCL 01/14 Hx Tablets 10mg 30tab 1 by mouth Lenny, s every day Jenniferl - JOCE smith 06/12 Omeprazole 08/09 Hx Capsules 20mg 30cap Take One Nash DR gray Capsule By Nidia - Mouth Every , MhCadD. Topiramate 00 Hx Tablets 100mg 60tab 1 po q am Unknown /0000 s and 1 1/2 pm - 12/01 Clonazepam Hx Tablets 0.5mg 45tab 1 PO hs Nash, / s X1 Nidia López MD 06/12 Relpax 00/00 Hx Tablets 40mg prn Unknown /0000 headaches - 06/12 Topiramate / Hx Tablets 50mg 30tab 1 po q hs Unknown /0000 s Trazodone HCL Hx Tablets 100mg 2 po hs Unknown /0000 - 12/01 Sertraline HCL / Hx Tablets 100mg 2 po qd Unknown /0000 - 06/12 Chlorpromazine / Hx Tablets 25mg 2 PO bid Unknown HCL / - 06/12 Propranolol HCL Hx Tablets 60mg 30tab 1/2 by mouth Unknown /0000 s every day - 06/12 Ondansetron HCL Hx Tablets 4mg 10tab 1 tab every Unknown /0000 s 6hr as - needed 08/20 Bupropion HCL ER 00 Hx Tablets 300mg 1 PO qd Unknown (XL) /0000 ER 24HR - 12/01 Bupropion HCL ER Hx Tablets 150mg 1 PO qd Unknown (XL) /0000 ER 24HR - 10/03 Ibuprofen Hx Tablets 800mg 1 PO Q 8 Unknown /0000 Hours Chlorpromazine Hx Tablets 25mg 1 po qday Unknown HCL / - 10/03 Relpax 00 Hx Tablets 40mg as needed Unknown /0000 headaches - 12/01 Tizanidine HCL Hx Capsules 2mg take 1 pill Unknown /0000 3x/day as - needed for 12/01 spasm and or 2 po @ hs Duloxetine HCL Hx Caps DR 60mg 1 by mouth Unknown /0000 Part every day - 03/01 Immunizations CPT Code Status Date Vaccine Lot # [id number] Given 02/11/2013 flu vaccination Vital Signs Date Vital Result Comment 03/01/2018 BP Systolic Sitting Right Arm 120 mmHg BP Diastolic Sitting Right Arm 78 mmHg Body Temperature 97.3 F Heart Rate 72 /min Respiratory Rate 22 /min Height 65 inches 5'5" Weight 170.12 lb BMI (Body Mass Index) 28.3 kg/m2 BSA (Body Surface Area) 1.85 m2 [place] body weight in kilograms 57 O2 % BldC Oximetry 97 % 12/01/2017 BP Systolic Sitting Left Arm 116 mmHg BP Diastolic Sitting Left Arm 72 mmHg Heart Rate 88 /min Respiratory Rate 20 /min Height 65 inches 5'5" Weight 171.00 lb BMI (Body Mass Index) 28.5 kg/m2 BSA (Body Surface Area) 1.85 m2 [place] body weight in kilograms 57 Last Menstrual Period [id number] 10/22/2016 BP Systolic Sitting Left Arm 118 mmHg BP Diastolic Sitting Left Arm 76 mmHg Heart Rate 84 /min Respiratory Rate 16 /min Height 65 inches 5'5" Weight 163.00 lb BMI (Body Mass Index) 27.1 kg/m2 BSA (Body Surface Area) 1.81 m2 [place] body weight in kilograms 57 04/23/2016 BP Systolic Sitting Left Arm 120 mmHg BP Diastolic Sitting Left Arm 70 mmHg Heart Rate 95 /min Respiratory Rate 16 /min Height 65 inches 5'5" Weight 153.00 lb BMI (Body Mass Index) 25.5 kg/m2 BSA (Body Surface Area) 1.77 m2 10/04/2015 BP Systolic 109 mmHg BP Diastolic 74 mmHg Heart Rate 89 /min Height 65 inches 5'5" Weight 160.00 lb BMI (Body Mass Index) 26.6 kg/m2 BSA (Body Surface Area) 1.80 m2 08/21/2015 BP Systolic 116 mmHg BP Diastolic 62 mmHg Heart Rate 76 /min Respiratory Rate 18 /min Height 65 inches 5'5" Weight 168.00 lb BMI (Body Mass Index) 28.0 kg/m2 BSA (Body Surface Area) 1.84 m2 O2 % BldC Oximetry 97 % Ra 07/17/2015 BP Systolic 118 mmHg BP Diastolic 78 mmHg Body Temperature 98.0 F Heart Rate 108 /min Respiratory Rate 20 /min Height 65 inches 5'5" Weight 181.00 lb BMI (Body Mass Index) 30.1 kg/m2 BSA (Body Surface Area) 1.90 m2 O2 % BldC Oximetry 97 % Ra 07/02/2015 BP Systolic Sitting Left Arm 124 mmHg BP Diastolic Sitting Left Arm 66 mmHg Heart Rate 80 /min Respiratory Rate 19 /min Height 65 inches 5'5" Weight 182.00 lb BMI (Body Mass Index) 30.3 kg/m2 BSA (Body Surface Area) 1.90 m2 06/12/2015 BP Systolic Sitting Left Arm 118 mmHg BP Diastolic Sitting Left Arm 78 mmHg Heart Rate 80 /min Respiratory Rate 20 /min Height 65 inches 5'5" Weight 179.00 lb BMI (Body Mass Index) 29.8 kg/m2 BSA (Body Surface Area) 1.89 m2 05/05/2014 BP Systolic 126 mmHg BP Diastolic 74 mmHg Height 65 inches 5'5" Weight 167.00 lb 04/18/2014 BP Systolic 118 mmHg BP Diastolic 70 mmHg Body Temperature 99.8 F Height 65 inches 5'5" Weight 162.00 lb 10/17/2013 BP Systolic 118 mmHg BP Diastolic 66 mmHg Height 65 inches 5'5" Weight 167.00 lb 10/11/2013 BP Systolic 118 mmHg BP Diastolic 66 mmHg Height 65 inches 5'5" Weight 163.00 lb 07/27/2013 BP Systolic 110 mmHg BP Diastolic 64 mmHg Height 65 inches 5'5" Weight 164.00 lb 07/14/2013 BP Systolic 124 mmHg BP Diastolic 74 mmHg Height 65 inches 5'5" Weight 156.00 lb 06/23/2013 BP Systolic 110 mmHg BP Diastolic 68 mmHg Height 65 inches 5'5" Weight 167.00 lb 06/10/2013 BP Systolic 112 mmHg BP Diastolic 58 mmHg Body Temperature 98.0 F Height 65 inches 5'5" Weight 162.00 lb 05/16/2013 BP Systolic 138 mmHg BP Diastolic 80 mmHg Height 65 inches 5'5" Weight 164.00 lb 05/04/2013 BP Systolic 114 mmHg BP Diastolic 62 mmHg Height 65 inches 5'5" Weight 158.00 lb 02/11/2013 BP Systolic 98 mmHg BP Diastolic 60 mmHg Height 64 inches 5'4" Weight 153.00 lb 01/14/2013 BP Systolic 110 mmHg BP Diastolic 62 mmHg Body Temperature 98.4 F Height 64 inches 5'4" Weight 159.00 lb 08/09/2012 BP Systolic 106 mmHg BP Diastolic 76 mmHg Height 64 inches 5'4" Weight 165.00 lb 07/23/2012 BP Systolic 100 mmHg BP Diastolic 62 mmHg Height 64 inches 5'4" Weight 166.00 lb 06/25/2012 BP Systolic 122 mmHg BP Diastolic 70 mmHg Height 64 inches 5'4" Weight 160.00 lb 03/15/2012 BP Systolic 144 mmHg BP Diastolic 80 mmHg Height 64 inches 5'4" Weight 144.00 lb 02/11/2012 BP Systolic 110 mmHg BP Diastolic 66 mmHg Heart Rate 84 /min Height 64 inches 5'4" Weight 150.00 lb 12/09/2011 BP Systolic 118 mmHg BP Diastolic 80 mmHg Heart Rate 84 /min Height 64 inches 5'4" Weight 156.00 lb 11/24/2011 BP Systolic 126 mmHg BP Diastolic 74 mmHg Height 64 inches 5'4" Weight 160.00 lb 10/14/2011 BP Systolic 112 mmHg BP Diastolic 68 mmHg Heart Rate 88 /min Height 64 inches 5'4" Weight 164.00 lb 09/23/2011 BP Systolic 126 mmHg BP Diastolic 74 mmHg Heart Rate 74 /min Respiratory Rate 18 /min Height 64 inches 5'4" Weight 174.00 lb 09/09/2011 BP Systolic 144 mmHg BP Diastolic 90 mmHg Heart Rate 72 /min Height 64 inches 5'4" Weight 175.00 lb Results Test Date Test Result H/L Range Note HIV Screen 4TH Gen 12/01/2017 HIV Screen 4th Non Reactive Non Reactive 1 , 2 Reflex Generation wRfx Affirm Vaginitis 12/01/2017 Trichomonas Negative [Negative] 1 Panel vaginalis Gardnerella vaginalis Negative [Negative] 1 Cass species Negative [Negative] 1, 3 Comprehensive Metabolic Panel 12/01/2017 Glucose 76 mg/dL 74-106 1 BUN 11 mg/dL 7-18 1 Creatinine 0.8 mg/dL 0.6-1.3 1 Glom Filtration Rate, Estimate >60 mL/min >60 1 If >60 mL/min >60 1, 4 BUN/Creat 13.7 ratio 1 Sodium 140 mmol/L 136-145 1 Potassium 4.1 mmol/L 3.5-5.1 1 Chloride 107 mmol/L 98-107 1 Carbon Dioxide 26 mmol/L 21-32 1 Anion Gap 7 mEq/L Low 8-16 1 Calcium 8.8 mg/dL 8.5-10.1 1 Total Protein 7.5 g/dL 6.4-8.2 1 Albumin 3.8 g/dL 3.4-5.0 1 Globulin 3.7 g/dL 1.9-4.3 1 Alb/Glob 1.0 ratio 1 Bilirubin,Total 0.4 mg/dL 0.2-1.0 1 Sgot/Ast 22 U/L 15-37 1 SGPT/Alt 65 U/L 12-78 1 Alkaline Phosphatase 59 U/L 45-117 1 Chlmaydia/GC/Trichomonas PCR 12/01/2017 Trichomonas vaginalis Negative Negative 1 PCR Chlamydia trachomatis, PCR Negative Negative 1 Neisseria gonorrhoeae, PCR Negative Negative 1, 5 Specimen Type: Genital 1 Laboratory test finding 12/01/2017 Hepatitis Be Antibody Negative Negative 1, 6 Hepatitis B Surface Antigen Negative Negative 1, 7 Treponema Antibody [place] Negative Negative 1 Urine Dipstick 12/01/2017 Ua PH 5 Low 6.5-7.5 Ua Specific Quinn 1.005 Low 1.010-1.030 Laboratory test finding 04/11/2017 Rapid Strep Molecular Negative Negative 8 Celiac Disease Comp PNL 04/28/2016 Immunoglobulin A 206 mg/dL 87-352 9 Antigliadin Abs, IgG 2 units 0-19 9, 10 Antigliadin Abs, IgA 6 units 0-19 9, 11 Endomysial IgA Antibody Negative Negative 9 t-Transglutaminase IgA <2 U/mL 0-3 9, 12 t-Transglutaminase IgG <2 U/mL 0-5 9, 13 Basic Metabolic Panel 04/28/2016 Glucose 77 mg/dL 74-106 9 BUN 19 mg/dL High 7-18 9 Creatinine 1.1 mg/dL 0.6-1.3 9 Glom Filtration Rate, Estimate 60 mL/min >60 9 If >60 mL/min >60 9, 14 BUN/Creat 17.2 ratio 9 Sodium 141 mmol/L 136-145 9 Potassium 4.2 mmol/L 3.5-5.1 9 Chloride 110 mmol/L High 98-107 9 Carbon Dioxide 25 mmol/L 21-32 9 Anion Gap 6 mEq/L Low 8-16 9 Calcium 8.6 mg/dL 8.5-10.1 9 Reflex add FT3? Y 9 Reflex add FT4? Y 9 Magnesium 04/28/2016 Magnesium 2.1 mg/dL 1.8-2.4 9 Reflex add FT3? Y 9 Reflex add FT4? Y 9 TSH Reflex FT4 And/Or FT3 04/28/2016 Thyroid Stim Hormone 1.67 uIU/mL 0.30-4.20 9 Reflex add FT3? Y 9 Reflex add FT4? Y 9 Laboratory test 04/28/2016 Vitamin 30.3 ng/mL 30.0-100.0 9, 15 finding D,25-Hydroxy Laboratory test 11/12/2015 Rapid Strep Negative Negative 16 finding Molecular Laboratory test 08/01/2015 Esophageal Biopsy See Note 17 finding Laboratory test 06/12/2015 Fit Hemoccult negative finding Pap Plus HPV 06/12/2015 [facility] HR- CT- GC- 18 TV- Laboratory test 08/07/2014 Vitamin B12 672 pg/mL 193-986 19 finding Comprehensive 08/07/2014 Glucose 65 mg/dL Low 74-106 Metabolic Panel BUN 10 mg/dL 7-18 Creatinine 1.0 mg/dL 0.6-1.3 Glom Filtration Rate, Estimate >60 mL/min >60 If >60 mL/min >60 20 BUN/Creat 10.0 ratio Sodium 139 mmol/L 136-145 Potassium 4.2 mmol/L 3.5-5.1 Chloride 110 mmol/L High 98-107 Carbon Dioxide 26 mmol/L 21-32 Anion Gap 3 mEq/L Low 8-16 Calcium 8.8 mg/dL 8.5-10.1 Total Protein 7.1 g/dL 6.4-8.2 Albumin 3.7 g/dL 3.4-5.0 Globulin 3.4 g/dL 1.9-4.3 Alb/Glob 1.1 ratio Bilirubin,Total 0.2 mg/dL 0.2-1.0 Sgot/Ast 11 U/L Low 15-37 21 SGPT/Alt 16 U/L 12-78 Alkaline Phosphatase 52 U/L 45-117 Laboratory test finding 08/07/2014 Thyroid Stim Hormone 0.94 uIU/mL 0.36- 3.74 Prolactin 83.6 ng/mL 22 Free T4 1.01 ng/dL 0.76-1.46 Vitamin D,25-Hydroxy 26.4 ng/mL Low 30.0-100.0 23 Drug Profile,Blood (7 Drugs) See Note 24 Blood Drugs Of Abuse 8 WB 08/07/2014 Amphetamines Negative . Barbiturates Negative . Benzodiazepines +POSITIVE+ . Diazepam Negative ng/mL . Desmethyldiazepam Negative ng/mL . Diazepam + Desmethyldiazepam Negative ng/mL 100 - 1500 Oxazepam Negative ng/mL 200 - 500 Temazepam (Restoril) Negative ng/mL 50 - 1000 Chlordiazepoxide Negative ng/mL . Desmethylchlordiazepoxide Negative ng/mL . Chlordiazepoxide + Desmethylc Negative ng/mL 100 - 3000 Alprazolam (Xanax) Negative ng/mL 5 - 25 25 Triazolam (Halcion) Negative ng/mL 5.0 - 20.0 Lorazepam (Ativan) Negative ng/mL 50.0-240.0 Flurazepam Negative ng/mL 0 - 30 Desalkylflurazepam Negative ng/mL 30 - 150 Midazolam (Versed) Negative ng/mL 50 - 600 Clonazepam (Klonopin) 12 ng/mL Low 20-60 7-Aminoclonazepam 23 ng/mL . 26 Cocaine + Metabolites Negative . Opiates Negative . Oxycodone Negative . Phencyclidine Negative . THC (Marijuana) Metabolite Negative . Specimen Type See Note 27 CBC 08/07/2014 White Blood Count 6.3 K/uL 3.1-10.7 Red Blood Count 4.73 M/uL 3.90-5.40 Hemoglobin 13.6 gm/dL 11.6-15.8 Hematocrit 40.2 % 36.0-46.1 Mean Cell Volume 85.0 fl 80.9-99.0 Mean Corpuscular HGB 28.8 pg 25.9-32.7 Mean Corpuscular HGB Conc 33.8 g/dL 30.8-34.3 Platelet Count 219 K/uL 155-360 Red Cell Distri Width %CV 13.5 % 11.7-14.4 Mean Platelet Volume 12.1 fL 8.9-12.4 Manual Differential 08/09/2013 Eosinophils % 3 % 0-6 Lymphocytes % 37 % 25-47 Monocytes % 6 % 0-13 Neutrophil % 44 % 38-83 RBC Morphology Normal Normal Reactive Lymph % 10 % High 0-6 Urinalysis 08/09/2013 Urine Appearance Clear Urine Bilirubin Negative Negative Urine Blood Negative Negative Urine Color Yellow Urine Esterase Negative Negative Urine Glucose Negative mg/dL Negative Urine Ketones Negative mg/dL Negative Urine Nitrate Negative Negative Urine Protein Negative mg/dL Negative Urine Specific Quinn 1.013 1.010-1.030 Urine Urobilinogen Negative E.U./dL Negative Urine pH 6.5 5-9 Comp Metabolic Panel 08/09/2013 Albumin 4.7 g/dL 3.2-5.2 Albumin/Globulin Ratio 2.4 1-3 Alkaline Phosphatase 47 U/L 34-104 Alt 29 U/L 7-52 Anion Gap 6 mmol/L 2-11 Ast 18 U/L 13-39 BUN/Creatinine Ratio 10.4 8-20 Blood Urea Nitrogen 11 mg/dL 6-24 Calcium 9.3 mg/dL 8.6-10.3 Chloride 106 mmol/L 101-111 Co2 Carbon Dioxide 26 mmol/L 22-32 Creatinine 1.06 mg/dL High 0.51-0.95 Egfr 76.8 >60 28 Egfr Non- 59.7 >60 Globulin 2.0 g/dL 2-4 Glucose 72 mg/dL 70-100 Potassium 3.5 mmol/L Low 3.7-5.6 Sodium 138 mmol/L 133-145 Total Bilirubin 0.30 mg/dL 0.2-1.0 Total Protein 6.7 g/dL 6.4-8.9 CBC Auto Diff 08/09/2013 Abs Basophils 0.1 10^3/uL 0-0.2 Abs Eosinophils 0.1 10^3/uL 0-0.6 Abs Lymphocytes 2.4 10^3/uL 1.0-4.8 Abs Monocytes 0.3 10^3/uL 0-0.8 Abs Neutrophils 2.1 10^3/uL 1.5-7.7 Abs Nucleated RBC 0.01 10^3/uL Basophil % 1.1 % 0-2 Eosinophil % 2.2 % 0-6 Granulocyte % 41.7 % 38-83 Hematocrit 41 % 35-47 Hemoglobin 13.8 g/dL 12.0-16.0 Lymphocyte % 48.5 % High 25-47 Mean Corpuscular HGB Conc 34 g/dL 31-36 Mean Corpuscular Hemoglobin 29 pg 27-31 Mean Corpuscular Volume 85 fL 80-97 Mean Platelet Volume 9 um3 7.4-10.4 Monocyte % 6.5 % 1-9 Nucleated Red Blood Cells % 0.1 Platelet Count 185 10^3/uL 150-450 Red Blood Count 4.82 10^6/uL 4.0-5.4 Red Cell Distribution Width 14 % 10.5-15 White Blood Count 4.9 10^3/uL 4.8-10.8 Laboratory test finding 08/09/2013 Acetaminophen < 15 g/mL 29 Alcohol < 10 mg/dL <10 Amphetamine Ur Screen None Detected None Detect Barbiturates Urine Screen None Detected None Detect Benzodiazepine Urine Screen None Detected None Detect Salicylate < 2.50 mg/dL <30 Serum Negative Negative 30 TSH (Thyroid Stimulating Horm) 0.68 IU/mL 0.34-5.60 Urine Cannabinoids Screen None Detected None Detect Urine Cocaine Screen Presumptive Posi <See Note> None Detect 31 Urine Opiates Screen None Detected None Detect Urine Phencyclidine Screen None Detected None Detect 32 Laboratory test finding 04/15/2013 Amphetamines (Urine) Negative Barbiturates (Urine) Negative Benzodiazepines (Urine) Negative Cannabinoids (Urine) Negative Cocaine Metabolite (Urine) Negative Methadone (Urine) Negative Opiates (Urine) Negative Urine Cutoffs * 33 Urine HCG (Qualitative) Negative Negative 34 Urine Screen 04/15/2013 Urine Bilirubin - Dipstick Negative Negative Urine Blood Negative Negative Urine Clarity Clear Clear Urine Color Yellow Yellow Urine Glucose - Dipstick Negative mg/dL Negative Urine Ketone Negative mg/dL Negative Urine Leuk Esterase Negative Negative Urine Nitrite - Dipstick Negative Negative Urine PH 7.0 6.5-7.5 Urine Protein - Dipstick Negative mg/dL Negative Urine Specific Quinn 1.010 1.010-1.030 Urine Urobilinogen - Dipstick 0.2 E.U./dL 0.2-1.0 Laboratory test finding 04/15/2013 Bas% 0.5 % 0.0-1.1 Baso # 0.03 K/uL 0.0-0.1 Eo% 1.0 % 0.0-6.6 Eos # 0.06 K/uL 0.0-0.5 Ethyl Alcohol < 3.0 mg/dL 0.0- Hematocrit 34.4 % Low 36.0-46.1 Hemoglobin 12.1 gm/dL 11.6-15.8 Lymph # 2.19 K/uL 0.8-3.4 Lymph % 36.9 % 17.0-46.1 Mean Cell Volume 83.5 fl 80.9-99.0 Mean Corpuscular HGB 29.4 pg 25.9-32.7 Mean Corpuscular HGB Conc 35.2 g/dL High 30.8-34.3 Mean Platelet Volume 10.9 fL 8.9-12.4 Cherry # 0.37 K/uL 0.3-0.9 Cherry % 6.2 % 4.3-13.2 Neut# 3.28 K/uL 1.0-7.0 Neut% 55.4 % 40.4-72.8 Platelet Count 182 K/uL 155-360 Red Blood Count 4.12 M/uL 3.90-5.40 Red Cell Distri Width %CV 13.9 % 11.7-14.4 Red Cell Distri Width SD 41.2 fl 3-47 Thyroid Stim Hormone 1.23 uIU/mL 0.49-4.67 White Blood Count 5.9 K/uL 3.1-10.7 Comprehensive Metabolic Panel 04/15/2013 Alb/Glob 2.0 ratio Albumin 3.8 g/dL 3.5-5.0 Alkaline Phosphatase 54 U/L 50-136 Anion Gap 9 mEq/L 8-16 BUN 19 mg/dL 5-23 BUN/Creat 19.0 ratio Bilirubin,Total 0.3 mg/dL 0.2-1.2 Calcium 8.6 mg/dL 8.5-10.1 Carbon Dioxide 21 mEq/L 18-29 Chloride 111 mmol/L High 98-107 Creatinine 1.0 mg/dL 0.5-1.4 Globulin 1.9 g/dL 1.9-4.3 Glom Filtration Rate, Estimate >60 mL/min >60 Glucose 87 mg/dL 76-115 If >60 mL/min >60 35 Potassium 3.7 mmol/L 3.5-5.1 SGPT/Alt 52 U/L 30-65 Sgot/Ast 25 U/L 16-40 Sodium 137 mmol/L 136-145 Total Protein 5.7 g/dL Low 6.3-8.0 Comp Metabolic Panel 02/11/2013 Albumin 4.3 g/dL 3.6-5.4 Albumin/Globulin Ratio 2.5 1-3 Alkaline Phosphatase 44 U/L 30-110 Alt 19 U/L 14-54 Anion Gap 7.0 mmol/L 2-11 Ast 14 U/L 12-42 BUN/Creatinine Ratio 11.0 8-20 Blood Urea Nitrogen 11 mg/dL 6-24 Calcium 9.2 mg/dL 8.1-9.9 Chloride 107 mmol/L 101-111 Co2 Carbon Dioxide 23.0 mmol/L 22-32 Creatinine 1.00 mg/dL 0.50-1.40 Egfr 82.6 >60 36 Egfr Non- 64.3 >60 Globulin 1.7 g/dL Low 2-4 Glucose 62 mg/dL Low 70-100 Potassium 3.9 mmol/L 3.5-5.0 Sodium 137 mmol/L 133-145 Total Bilirubin 0.5 mg/dL 0.4-1.5 Total Protein 6.0 g/dL Low 6.2-8.1 Comp Metabolic Panel 01/04/2013 Albumin 4.6 g/dL 3.6-5.4 Albumin/Globulin Ratio 1.5 1-3 Alkaline Phosphatase 38 U/L 30-110 Alt 16 U/L 14-54 Anion Gap 7.0 mmol/L 2-11 Ast 17 U/L 12-42 BUN/Creatinine Ratio 15.0 8-20 Blood Urea Nitrogen 12 mg/dL 6-24 Calcium 9.5 mg/dL 8.1-9.9 Chloride 110 mmol/L 101-111 Co2 Carbon Dioxide 23.0 mmol/L 22-32 Creatinine 0.80 mg/dL 0.50-1.40 Egfr 106.9 >60 37 Egfr Non- 83.1 >60 Globulin 3.0 g/dL 2-4 Glucose 84 mg/dL 70-100 Potassium 3.8 mmol/L 3.5-5.0 Sodium 140 mmol/L 133-145 Total Bilirubin 0.3 mg/dL Low 0.4-1.5 Total Protein 7.6 g/dL 6.2-8.1 CBC Auto Diff 01/04/2013 Abs Basophils 0 10^3/uL 0-0.2 Abs Eosinophils 0.1 10^3/uL 0-0.6 Abs Lymphocytes 2.2 10^3/uL 1.0-4.8 Abs Monocytes 0.3 10^3/uL 0-0.8 Abs Neutrophils 4.2 10^3/uL 1.5-7.7 Abs Nucleated RBC 0.01 10^3/uL Basophil % 0.5 % 0-2 Eosinophil % 1.2 % 0-6 Granulocyte % 62.2 % 38-83 Hematocrit 43 % 35-47 Hemoglobin 13.9 g/dL 12.0-16.0 Lymphocyte % 31.8 % 25-47 Mean Corpuscular HGB Conc 32 g/dL 31-36 Mean Corpuscular Hemoglobin 28 pg 27-31 Mean Corpuscular Volume 88 fL 80-97 Mean Platelet Volume 10 um3 7.4-10.4 Monocyte % 4.3 % 1-9 Nucleated Red Blood Cells % 0.1 Platelet Count 198 10^3/uL 150-450 Red Blood Count 4.89 10^6/uL 4.0-5.4 Red Cell Distribution Width 13 % 10.5-15 White Blood Count 6.8 10^3/uL 4.8-10.8 Laboratory test finding 01/04/2013 Acetaminophen < 10 ug/mL Low 10-30 38 Alcohol < 10 mg/dL Less Than 10 39 Salicylate < 4.0 Less Than 30 TSH (Thyroid Stimulating Horm) 0.96 miu/mL 0.34-5.60 Laboratory test 01/04/2013 Amphetamine Ur Screen None Detected None Detect finding Barbiturates Urine Screen None Detected None Detect Benzodiazepine Urine Screen None Detected None Detect Urine Cannabinoids Screen None Detected None Detect Urine Cocaine Screen None Detected None Detect Urine Opiates Screen None Detected None Detect Urine Phencyclidine Screen None Detected None Detect 40 Laboratory test finding 08/20/2012 Valproic Acid 86.6 ug/mL 50.0-100.0 41 Laboratory test finding 08/12/2012 Valproic Acid 104.9 ug/mL High 50.0- 100.0 42 Comp Metabolic Panel 08/09/2012 Albumin 3.7 g/dL 3.6-5.4 Albumin/Globulin Ratio 1.5 1-3 Alkaline Phosphatase 41 U/L 30-110 Alt 93 U/L High 14-54 Anion Gap 7.0 mmol/L 2-11 Ast 52 U/L High 12-42 BUN/Creatinine Ratio 17.0 8-20 Blood Urea Nitrogen 17 mg/dL 6-24 Calcium 9.3 mg/dL 8.1-9.9 Chloride 108 mmol/L 101-111 Co2 Carbon Dioxide 24.0 mmol/L 22-32 Creatinine 1.00 mg/dL 0.50-1.40 Egfr 82.6 >60 43 Egfr Non- 64.3 >60 Globulin 2.5 g/dL 2-4 Glucose 74 mg/dL 70-100 Potassium 4.2 mmol/L 3.5-5.0 Sodium 139 mmol/L 133-145 Total Bilirubin 0.4 mg/dL 0.4-1.5 Total Protein 6.2 g/dL 6.2-8.1 CBC With Manual Diff 08/09/2012 Abs Basophils 0 10^3/uL 0-0.2 Abs Eosinophils 0.1 10^3/uL 0-0.6 Abs Lymphocytes 2.2 10^3/uL 1.0-4.8 Abs Monocytes 0.5 10^3/uL 0-0.8 Abs Neutrophils 3.1 10^3/uL 1.5-7.7 Abs Nucleated RBC 0 10^3/uL Band % 3 % 0-8 Eosinophils % 2 % 0-6 Hematocrit 42 % 35-47 Hemoglobin 14.1 g/dL 12.0-16.0 Lymphocytes % 34 % 25-47 Mean Corpuscular HGB Conc 34 g/dL 31-36 Mean Corpuscular Hemoglobin 29 pg 27-31 Mean Corpuscular Volume 87 fL 80-97 Mean Platelet Volume 10 um3 7.4-10.4 Monocytes % 8 % 0-13 Neutrophil % 50 % 38-83 Platelet Count 146 10^3/uL Low 150-450 RBC Morphology Normal Normal Reactive Lymph % 3 % 0-6 Red Blood Count 4.81 10^6/uL 4.0-5.4 Red Cell Distribution Width 14 % 10.5-15 White Blood Count 5.9 10^3/uL 4.8-10.8 Laboratory test finding 08/09/2012 Valproic Acid 105.2 ug/mL High 50.0- 100.0 44 Laboratory test finding 07/28/2012 Lipase 74 U/L 28-380 Urine HCG (Qualitative) Negative Negative 45 CBS W/Automated Diff 07/28/2012 Bas% 0.5 % 0.0-1.1 Baso # 0.03 K/uL 0.0-0.1 Eo% 2.1 % 0.0-6.6 Eos # 0.13 K/uL 0.0-0.5 Hematocrit 39.9 % 36.0-46.1 Hemoglobin 12.8 gm/dL 11.6-15.8 Lymph # 2.15 K/uL 0.8-3.4 Lymph % 34.5 % 17.0-46.1 Mean Cell Volume 89.5 fl 80.9-99.0 Mean Corpuscular HGB 28.7 pg 25.9-32.7 Mean Corpuscular HGB Conc 32.1 g/dL 30.8-34.3 Mean Platelet Volume 11.4 fL 8.9-12.4 Cherry # 0.55 K/uL 0.3-0.9 Cherry % 8.8 % 4.3-13.2 Neut# 3.38 K/uL 1.0-7.0 Neut% 54.1 % 40.4-72.8 Platelet Count 133 K/uL Low 155-360 Red Blood Count 4.46 M/uL 3.90-5.40 Red Cell Distri Width %CV 14.7 % High 11.7-14.4 Red Cell Distri Width SD 47.6 fl High 3-47 White Blood Count 6.2 K/uL 3.1-10.7 Comprehensive Metabolic Panel 07/28/2012 Alb/Glob 1.1 ratio Albumin 3.3 g/dL Low 3.5-5.0 Alkaline Phosphatase 48 U/L Low 50-136 Anion Gap 14 mEq/L 8-16 BUN 16 mg/dL 5-23 BUN/Creat 17.7 ratio Bilirubin,Total 0.2 mg/dL 0.2-1.2 Calcium 8.7 mg/dL 8.5-10.1 Carbon Dioxide 25 mEq/L 18-29 Chloride 111 mmol/L High 98-107 Creatinine 0.9 mg/dL 0.5-1.4 Globulin 2.9 g/dL 1.9-4.3 Glom Filtration Rate, Estimate >60 mL/min >60 Glucose 69 mg/dL Low 76-115 If >60 mL/min >60 46 Potassium 4.0 mmol/L 3.5-5.1 SGPT/Alt 98 U/L High 30-65 Sgot/Ast 45 U/L High 16-40 Sodium 146 mmol/L High 136-145 Total Protein 6.2 g/dL Low 6.3-8.0 Urine Screen 07/28/2012 Urine Bilirubin - Dipstick Negative Negative Urine Blood Negative Negative Urine Clarity Clear Clear Urine Color Yellow Yellow Urine Glucose - Dipstick Negative mg/dL Negative Urine Ketone Negative mg/dL Negative Urine Leuk Esterase Negative Negative Urine Nitrite - Dipstick Negative Negative Urine PH 6.5 6.5-7.5 Urine Protein - Dipstick Negative mg/dL Negative Urine Specific Quinn 1.010 1.010-1.030 Urine Urobilinogen - Dipstick 0.2 E.U./dL 0.2-1.0 Laboratory test finding 07/28/2012 Valproic Acid 99.8 ug/mL 50.0-100.0 Laboratory test finding 07/14/2012 Valproic Acid 88.3 ug/mL 50.0-100.0 Laboratory test finding 07/12/2012 Valproic Acid 66.5 ug/mL 50.0-100.0 Laboratory test finding 07/11/2012 Valproic Acid 25.6 ug/mL Low 50.0- 100.0 Laboratory test finding 07/08/2012 Valproic Acid 83.6 ug/mL 50.0-100.0 LDL Cholesterol Profile 07/04/2012 Cholesterol 96 mg/dL Low 120-200 HDL Cholesterol 34 mg/dL LDL-Cholesterol 48 mg/dL Low 62-185 Triglycerides 72 mg/dL - Laboratory test finding 07/04/2012 Bas% 0.7 % 0.0-1.1 Baso # 0.05 K/uL 0.0-0.1 Eo% 5.5 % 0.0-6.6 Eos # 0.38 K/uL 0.0-0.5 Free T4 0.73 ng/dL 0.71-1.85 47 Hematocrit 36.8 % 36.0-46.1 Hemoglobin 11.6 gm/dL 11.6-15.8 Lymph # 2.66 K/uL 0.8-3.4 Lymph % 38.6 % 17.0-46.1 Mean Cell Volume 91.1 fl 80.9-99.0 Mean Corpuscular HGB 28.7 pg 25.9-32.7 Mean Corpuscular HGB Conc 31.5 g/dL 30.8-34.3 Mean Platelet Volume 11.0 fL 8.9-12.4 Cherry # 0.64 K/uL 0.3-0.9 Cherry % 9.3 % 4.3-13.2 Neut# 3.16 K/uL 1.0-7.0 Neut% 45.9 % 40.4-72.8 Platelet Count 215 K/uL 155-360 Rapid Plasma Reagin Nonreactive Nonreactive 48 Red Blood Count 4.04 M/uL 3.90-5.40 Red Cell Distri Width %CV 15.1 % High 11.7-14.4 Red Cell Distri Width SD 49.5 fl High 3-47 Thyroid Stim Hormone 2.34 uIU/mL 0.49-4.67 49 White Blood Count 6.9 K/uL 3.1-10.7 Laboratory test finding 05/11/2012 Valproic Acid 55.6 ug/mL 50.0-100.0 LDL Cholesterol Profile 05/06/2012 Cholesterol 84 mg/dL Low 120-200 HDL Cholesterol 28 mg/dL Low -83 LDL-Cholesterol 47 mg/dL Low 62-185 Triglycerides 47 mg/dL -231 Laboratory test finding 05/06/2012 Bas% 0.6 % 0.0-1.1 Baso # 0.03 K/uL 0.0-0.1 Eo% 2.5 % 0.0-6.6 Eos # 0.12 K/uL 0.0-0.5 Free T4 1.03 ng/dL 0.71-1.85 HCG Serum, Qualitative Negative Hematocrit 34.8 % Low 36.0-46.1 Hemoglobin 11.6 gm/dL 11.6-15.8 Lymph # 1.85 K/uL 0.8-3.4 Lymph % 38.5 % 17.0-46.1 Mean Cell Volume 85.9 fl 80.9-99.0 Mean Corpuscular HGB 28.6 pg 25.9-32.7 Mean Corpuscular HGB Conc 33.3 g/dL 30.8-34.3 Mean Platelet Volume 11.2 fL 8.9-12.4 Cherry # 0.34 K/uL 0.3-0.9 Cherry % 7.1 % 4.3-13.2 Neut# 2.46 K/uL 1.0-7.0 Neut% 51.3 % 40.4-72.8 Platelet Count 176 K/uL 155-360 Rapid Plasma Reagin Nonreactive Nonreactive 50 Red Blood Count 4.05 M/uL 3.90-5.40 Red Cell Distri Width %CV 13.8 % 11.7-14.4 Red Cell Distri Width SD 42.6 fl 3-47 Thyroid Stim Hormone 0.59 uIU/mL 0.49-4.67 White Blood Count 4.8 K/uL 3.1-10.7 Comp Metabolic Panel 09/23/2011 Albumin 4.3 GM/DL 3.6-5.4 Albumin/Globulin Ratio 1.9 1-3 Alkaline Phosphatase 52 U/L 30-110 Alt (SGPT) 43 U/L 14-54 Anion Gap 5.0 mmol/L 2-11 51 Ast (Sgot) 25 U/L 12-42 BUN 13 mg/dL 6-24 BUN/Creatinine Ratio 16.3 8-20 Bilirubin Total 0.5 mg/dL 0.4-1.5 52 Calcium 9.2 mg/dL 8.1-9.9 Chloride 109 mmol/L 101-111 Co2 (Carbon Dioxide) 25.0 mmol/L 22-32 Creatinine 0.8 mg/dL 0.50-1.40 Globulin 2.3 GM/DL 2-4 Glucose 80 mg/dL 70-100 One Over Creatinine 1.25 Potassium 4.1 mmol/L 3.5-5.0 Sodium 139 mmol/L 135-145 Total Protein 6.6 GM/DL 6.2-8.1 eGFR 107.6 > 60 53 eGFR Non- 83.7 > 60 Laboratory test finding 09/23/2011 TSH 0.74 MIU/ML 0.34-5.60 1 Z01.419 2 Performed at: [address] [id number] Green Meat Packer: Anisha Her MD, Phone: [phone] Method: BD Affirm VPIII DNA Probe Assay 4 Note: Persistent reduction for 3 months or more in an eGFR <60 mL/min/1.73 m2 defines CKD. Patients with eGFR values >/=60 mL/min/1.73 m2 may also have CKD if evidence of persistent proteinuria is present. The original MDRD equation for estimated GFR is not valid for patients less than 18 years of age. Additional information may be found at www.kdoqi.org. 5 A negative result for either C. trachomatis and/or N. gonorrhoeae does not preclued an infection because results are dependent on adequate specimen collection, absence of inhibitors, and sufficient DNA to be detected. 6 Performed at: [address] [id number] Green Meat Packer: Anisha Her MD, Phone: [phone] Performed at: [address] [id number] Green Meat Packer: Noe Dubon MD, Phone: [phone] Performed at: [address] [id number] Green Meat Packer: Anisha Her MD, Phone: [phone] Powerhouse Mechanic Apprentice: [id number] R11.2, R12, K59.04 10 Negative 0 - 19 Weak Positive 20 - 30 Moderate to Strong Positive >30 11 Negative 0 - 19 Weak Positive 20 - 30 Moderate to Strong Positive >30 12 Negative 0 - 3 Weak Positive 4 - 10 Positive >10 Tissue Transglutaminase (tTG) has been identified as the endomysial antigen. Studies have demonstr- ated that endomysial IgA antibodies have over 99% specificity for gluten sensitive enteropathy. 13 Negative 0 - 5 Weak Positive 6 - 9 Positive >9 Performed at: [facility] [id number] Green Meat Packer: Anisha Her MD, Phone: [phone] 14 Note: Persistent reduction for 3 months or more in an eGFR <60 mL/min/1.73 m2 defines CKD. Patients with eGFR values >/=60 mL/min/1.73 m2 may also have CKD if evidence of persistent proteinuria is present. The original MDRD equation for estimated GFR is not valid for patients less than 18 years of age. Additional information may be found at www.kdoqi.org. 15 Vitamin D deficiency has been defined by the [place] [employer] and an Endocrine Society practice guideline as a level of serum 25-OH vitamin D less than 20 ng/mL (1,2). The Endocrine Society went on to further define vitamin D insufficiency as a level between 21 and 29 ng/mL (2). 1. IOM ([place] [employer]). 2010. Dietary reference intakes for calcium and D. [place]: The National Academies Press. 2. Alison MF, Jorge NC, Funmilayo ROQUE, et al. Evaluation, treatment, and prevention of vitamin D deficiency: an Endocrine Society clinical practice guideline. JCEM. 2010; 96(7):1911-30. Performed at: [address] [id number] Green Meat Packer: Anisha Her MD, Phone: [phone] Powerhouse Mechanic Apprentice: [id number] HUMA POE Due to the increased sensitivity of molecular testing, reflex cultures are no longer performed. 17 OPERATION/PROCEDURE Colonoscopy, gastroscopy DIAGNOSIS: PART 1: "COLON, RANDOM, BIOPSY": - BENIGN COLONIC MUCOSA WITH NO SIGNIFICANT PATHOLOGIC ABNORMALITIES. - NO EVIDENCE OF MICROSCOPIC COLITIS. PART 2: "DUODENUM, RANDOM, BIOPSY": - BENIGN SMALL INTESTINAL MUCOSA WITH NO SIGNIFICANT PATHOLOGIC ABNORMALITIES. - NO EVIDENCE OF VILLOUS BLUNTING OR INCREASED INTRAEPITHELIAL LYMPHOCYTES. PART 3: "ESOPHAGUS, BIOPSY": - SQUAMOUS AND COLUMNAR MUCOSA WITH CHRONIC INFLAMMATION. - NEGATIVE FOR INTESTINAL METAPLASIA AND DYSPLASIA. EP/clf [id number] GROSS Received in formalin in three properly labeled containers with the patient's name and accession number. Part one is designated, "RANDOM COLON BIOPSIES". The specimen consists of multiple pieces of delarosa, soft rubbery tissue measuring 0.8 x 0.6 x 0.2 cm. in aggregate. Submitted entirely, one cassette. Part two is designated, "RANDOM DUODENAL BIOPSIES". The specimen consists of multiple pieces of delarosa, soft rubbery tissue measuring 1.0 x 0.6 x 0.3 cm. in aggregate. Submitted entirely, one cassette. Part three is designated, "ESOPHAGEAL BIOPSIES". The specimen consists of multiple pieces of delarosa, soft rubbery tissue measuring 0.8 x 0.5 x 0.2 cm. in aggregate. Submitted entirely, one cassette. /clf PRE OPERATIVE DIAGNOSIS Colon screening, nausea. REVIEW CODE CODE: I Signed Electronically signed Bolivar BRIDGES MD [id number] 18 Interpretation: NEGATIVE FOR INTRAEPITHELIAL LESION OR MALIGNANCY. REACTIVE CELLULAR CHANGES ASSOCIATED WITH INFLAMMATION. Specimen Adequacy: SATISFACTORY FOR EVALUATION. Additional Findings: ENDOCERVICAL/TRANSFORMATION ZONE PRESENT. Cytology Laboratory [address] [facility], [address] [place] [address] CYTOLOGY REPORT Name: Fidelia Payne : 1980 (Age: 35) Sex: F Location: [facility] Med. Rec. # [id number] Date Collected: 06/12/2015 Billing #: [id number] Date Received: 06/13/2015 Requisition # [id number] Physician(s): NIDIA NASH MD Source of Specimen: ENDOCERVICAL/ECTOCERVICAL THIN PREP Clinical Information: Date of Last Menstrual Period: 05/30/15 Electronic Signature Kiran Arredondo MD Reported: 06/19/2015 Also seen by: CHIO Garsia (ASCP) [facility] HPV High Risk Date Ordered: 06/14/2015 Status: Signed Out Date Reported: 06/15/2015 High Risk NEGATIVE (HPV Types 16, 18, 31, 33, 35, 39, 45, 51, 52, 56, 58, 59, 66, 68) APTIMA Electronic Signature [facility] Chlamydia trachomatis Date Ordered: 06/14/2015 Status: Signed Out Date Reported: 06/15/2015 Chlamydia trachomatis NEGATIVE Electronic Signature [facility] Neisseria gonorrhoeae Date Ordered: 06/14/2015 Status: Signed Out Date Reported: 06/15/2015 Neisseria gonorrhoeae NEGATIVE Electronic Signature [facility] Trichomonas Date Ordered: 06/14/2015 Status: Signed Out Date Reported: 06/15/2015 Trichomonas vaginalis NEGATIVE Electronic Signature [facility] Dx Code(s): Z01.419 R10.30 A; N72 19 NOTE CHANGE IN B12 REFERENCE RANGE 20 Note: Persistent reduction for 3 months or more in an eGFR <60 mL/min/1.73 m2 defines CKD. Patients with eGFR values >/=60 mL/min/1.73 m2 may also have CKD if evidence of persistent proteinuria is present. The original MDRD equation for estimated GFR is not valid for patients less than 18 years of age. Additional information may be found at www.kdoqi.org. 21 Values below the stated reference ranges of AST and ALT can be seen in normal populations. Clinical correlation is suggested. 22 Non- ..... 2.2-30.3 ng/mL ......... 8.1-347.6 ng/mL Post-Menopausal .. 0.7-31.5 ng/mL 23 Vitamin D deficiency has been defined by the [place] [employer] and an Endocrine Society practice guideline as a level of serum 25-OH vitamin D less than 20 ng/mL (1,2). The Endocrine Society went on to further define vitamin D insufficiency as a level between 21 and 29 ng/mL (2). 1. IOM ([place] [employer]). 2010. Dietary reference intakes for calcium and D. [place]: The National Academies Press. 2. Alison MF, Jorge NC, Funmilayo ROQUE, et al. Evaluation, treatment, and prevention of vitamin D deficiency: an Endocrine Society clinical practice guideline. JCEM. 2010; 96(7):1911-30. Performed at: - [facility] [id number] Green Meat Packer: Anisha Her MD, Phone: [phone] 08/18/14 LAB.RAP WRONG TEST 25 NOTE: SOME PATIENTS RESPOND WELL TO HIGH DOSE ALPRAZOLAM THERAPY WITH RESULTANT SERUM CONCENTRATIONS 25 - 55 ng/ml. 26 Quantitative benzodiazepine screen includes: Diazepam, desmethyldiazepam, oxazepam,temazepam, chlordiazepoxide, desmethylchlordiazepoxide, alprazolam, triazolam, lorazepam, desalkylflurazepam, midazolam, clonazepam, 7-aminoclonazepam. REFERENCE RANGE: NOT ESTABLISHED 27 Performed at: [facility] [address] [id number] Green Meat Packer: Dejan Beauchamp MD, Phone: [phone] WHOLE BLOOD The drugs in this panel were screened by immunoassay and if positive confirmed by GC/MS or LC/MS/MS at the following threshold concentrations: Drug Screen Confirmation Amphetamine 50 ng/mL 10 ng/mL Barbiturates 100 ng/mL 200 ng/mL Benzodiazepines 20 ng/mL See individual drug Cocaine 25 ng/mL 30 ng/mL Opiates 10 ng/mL 1 ng/mL codeine,morphine,6AM hydrocodone, hydromorphone dihydrocodeine Oxycodone 10 ng/mL 1 ng/mL oxycodone,oxymorphone Phencyclidine 8 ng/mL 8 ng/mL THC (marijuana) MTB 5 ng/mL 2 ng/mL 28 Because ethnic data is not always readily available, this report includes an eGFR for both -Americans and non- Americans. The National Kidney Disease Education Program (NKDEP) does not endorse the use of the MDRD equation for patients that are not between the ages of 18 and 70, are , have extremes of body size, muscle mass, or nutritional status, or are non- or non-. According to the National Kidney Foundation, irrespective of diagnosis, the stage of the disease is based on the level of kidney function: Stage Description GFR(mL/min/1.73 m(2)) 1 Kidney damage with normal or decreased GFR 90 2 Kidney damage with mild decrease in GFR 60- 89 3 Moderate decrease in GFR 30-59 4 Severe decrease in GFR 15-29 5 Kidney failure <15 (or dialysis) 29 Therapeutic concentration: <50 ug/mL Toxic concentration: >120 ug/mL 30 This test detects intact HCG only and is indicated for the early detection of . 31 Presumptive Positive 32 The urine specimen was tested at the listed cutoffs: Drug class test level (ng/ml) Amphetamines 300 Barbituates 200 Benzodiazepine metabolites 200 Cocaine metabolites 300 Cannabinoids 25 Opiates 200 Pcp 25 This is a screening procedure. Positive results are not confirmed. Specimen was received without chain of custody. Results should be used for medical purposes only. 33 *THE SUBMITTED URINE SPECIMEN WAS SCREENED AT THE LISTED CUTOFFS DRUG CLASS INITIAL TEST LEVEL Amphetamines 1000 ng/mL Barbiturates 200 ng/mL Benzodiazepines 200 ng/mL Cannabinoids 50 ng/mL Cocaine Metabolite 300 ng/mL Methadone 300 ng /mL Opiates 300 ng/mL 34 FIRST MORNING SPECIMENS GENERALLY CONTAIN THE HIGHEST CONCENTRATION OF HCG AND ARE RECOMMENDED FOR EARLY DETECTION OF . 35 Note: Persistent reduction for 3 months or more in an eGFR <60 mL/min/1.73 m2 defines CKD. Patients with eGFR values >/=60 mL/min/1.73 m2 may also have CKD if evidence of persistent proteinuria is present. The original MDRD equation for estimated GFR is not valid for patients less than 18 years of age. Additional information may be found at www.kdoqi.org. 36 Because ethnic data is not always readily available, this report includes an eGFR for both -Americans and non- Americans. The National Kidney Disease Education Program (NKDEP) does not endorse the use of the MDRD equation for patients that are not between the ages of 18 and 70, are , have extremes of body size, muscle mass, or nutritional status, or are non- or non-. According to the National Kidney Foundation, irrespective of diagnosis, the stage of the disease is based on the level of kidney function: Stage Description GFR(mL/min/1.73 m(2)) 1 Kidney damage with normal or decreased GFR 90 2 Kidney damage with mild decrease in GFR 60- 89 3 Moderate decrease in GFR 30-59 4 Severe decrease in GFR 15-29 5 Kidney failure <15 (or dialysis) 37 Because ethnic data is not always readily available, this report includes an eGFR for both -Americans and non- Americans. The National Kidney Disease Education Program (NKDEP) does not endorse the use of the MDRD equation for patients that are not between the ages of 18 and 70, are , have extremes of body size, muscle mass, or nutritional status, or are non- or non-. According to the National Kidney Foundation, irrespective of diagnosis, the stage of the disease is based on the level of kidney function: Stage Description GFR(mL/min/1.73 m(2)) 1 Kidney damage with normal or decreased GFR 90 2 Kidney damage with mild decrease in GFR 60- 89 3 Moderate decrease in GFR 30-59 4 Severe decrease in GFR 15-29 5 Kidney failure <15 (or dialysis) 38 Toxic levels: greater than 150 mcg/ml @ 4hr post ingest Greater than 50 mcg /ml @ 12hr post ingest The detection limit for acetaminophen is 10.0 mcg/ml . Values less than 10.0 mcg/ml cannot be accurately measured. 39 The detection limit for Ethanol is 10.0 mg/dl . Values less than 10.0 mg/ dl cannot be accurately measured. 40 The urine specimen was tested at the listed cutoffs: Drug class test level (ng/ml) Amphetamines 300 Barbituates 200 Benzodiazepine metabolites 200 Cocaine metabolites 300 Cannabinoids 25 Opiates 200 Pcp 25 This is a screening procedure. Positive results are not confirmed. Specimen was received without chain of custody. Results should be used for medical purposes only. 41 The detection limit for VALPROIC ACID is 10.0 mcg/ml . Values less than 10.0 mcg/ml cannot be accurately measured. 42 The detection limit for VALPROIC ACID is 10.0 mcg/ml . Values less than 10.0 mcg/ml cannot be accurately measured. 43 Because ethnic data is not always readily available, this report includes an eGFR for both -Americans and non- Americans. The National Kidney Disease Education Program (NKDEP) does not endorse the use of the MDRD equation for patients that are not between the ages of 18 and 70, are , have extremes of body size, muscle mass, or nutritional status, or are non- or non-. According to the National Kidney Foundation, irrespective of diagnosis, the stage of the disease is based on the level of kidney function: Stage Description GFR(mL/min/1.73 m(2)) 1 Kidney damage with normal or decreased GFR 90 2 Kidney damage with mild decrease in GFR 60- 89 3 Moderate decrease in GFR 30-59 4 Severe decrease in GFR 15-29 5 Kidney failure <15 (or dialysis) 44 The detection limit for VALPROIC ACID is 10.0 mcg/ml . Values less than 10.0 mcg/ml cannot be accurately measured. 45 FIRST MORNING SPECIMENS GENERALLY CONTAIN THE HIGHEST CONCENTRATION OF HCG AND ARE RECOMMENDED FOR EARLY DETECTION OF . 46 Note: Persistent reduction for 3 months or more in an eGFR <60 mL/min/1.73 m2 defines CKD. Patients with eGFR values >/=60 mL/min/1.73 m2 may also have CKD if evidence of persistent proteinuria is present. The original MDRD equation for estimated GFR is not valid for patients less than 18 years of age. Additional information may be found at www.kdoqi.org. 47 Comments to legal office administrator: THANK YOU. 48 PENDING; TEST PERFORMED ON MONDAYS AND THURSDAYS 49 Comments to legal office administrator: THANK YOU. 50 PENDING; TEST PERFORMED ON MONDAYS AND THURSDAYS 51 Anion gap measurement may be of limited value in the presence of any alkalosis, especially in a combined acid base disorder. . 52 A metabolite of Naproxen, O-desmethylnaproxen, has been shown to interfere with the Jendrassik-Dayanna method for measuring total bilirubin. Samples from patients who have taken Naproxen have shown spurious elevation in total bilirubin levels. 53 Because ethnic data is not always readily available, this report includes an eGFR for both -Americans and non- Americans. The National Kidney Disease Education Program (NKDEP) does not endorse the use of the MDRD equation for patients that are not between the ages of 18 and 70, are , have extremes of body size, muscle mass, or nutritional status, or are non- or non-. According to the National Kidney Foundation, irrespective of diagnosis, the stage of the disease is based on the level of kidney function: Stage Description GFR(mL/min/1.73 m(2)) 1 Kidney damage with normal or decreased GFR 90 2 Kidney damage with mild decrease in GFR 60- 89 3 Moderate decrease in GFR 30-59 4 Severe decrease in GFR 15-29 5 Kidney failure <15 (or dialysis) Procedures Date CPT Code Description Status Comment 11/06/2016 19442 EGD With Biopsy Completed 08/01/2015 22043 Colonoscopy With Biopsy Completed 08/01/2015 77314 Endoscopy Small Intestine Completed W/Biopsy 08/01/2015 Colonoscopy Completed Document: 08/01/15 - Operative Report-Colonoscopy 07/12/2012 48303 EKG Interpretation And Report Completed Only 07/05/2012 38089 EKG Interpretation And Report Completed Only 05/06/2012 47896 EKG Interpretation And Report Completed Only Encounters Type Date Location Provider CPT E/M Dx Office Visit 03/01/2018 2:30p Family Medicine Autumn Stearns, LATRINE CLEANER 40630 B35.3 M54.5 Office Visit 12/01/2017 1:30p Family Medicine Rc Galvez, 57041 Z01.419 [facility] K59.00 R10.9 F17.210 Z71.6 Office Visit 10/22/2016 9:30[place] [address] R12 R11.2 K59.04 Office Visit 04/23/2016 1:45p [place] [address] R12 R11.2 K59.04 Office Visit 10/04/2015 2:00[place] [address] R11.10 K21.9 Z12.11 Office Visit 08/21/2015 2:00p [place] [address] R11.10 K21.9 Z12.11 Office Visit 07/17/2015 1:30[place] [address] R11.10 K21.9 Z12.11 Office Visit 07/02/2015 1:45p Family Medicine Nidia Nash M.D. 64519 R10.30 R11.10 Office Visit 06/12/2015 2:30p Family [facility] Nidia Nash M.D. 83699 R10.30 Plan of Care 03/01/2018 - Autumn Stearns, FNPB35.3 Tinea pedisNew Medication:Tolnaftate 1 % Comments:You're at risk for a bacterial infection of the area because the area has opened before. It looks good right now, but please keep an eye on the area and keep it very clean and dry.Begin prescription anti-fungal cream.Please call me in 3 weeks to let me know if it's helping.Call for worsening [id number] Low back painComments:You've tried PT and many pharmaceutical options in the past, you are refusing additional PT at this time. I will refer you to [facility] to get their opinion. Call for worsening symptoms.Referral:[facility], Family/CONTROLS DESIGNER
[2018-03-08 12:17] VITALS: BP 119/85
--- NOTE | 2018-03-08 12:32 | UC ---
FLU HPI - HPI Summary HPI Summary: 37 yo female with MH history, no recent colds, no recent ABX with h/o TOB 3-5 cig a day since age 14, C/O sinus pain/ tenderness, chills, fever, cough- productive, rib pain x 7+ days, no improvement. no GI symptoms, no ROQUE. b/l ear pain, L>R, no heart palpitations. - History of Current Complaint Chief Complaint: UCRespiratory Stated Complaint: ST/COUGH/SINUS COMPLAINT Time Seen by Provider: 03/08/18 12:17 Hx Obtained From: Patient Hx Last Menstrual Period: 02/15/18 ?: Yes Onset/Duration: Sudden Onset, Lasting Days Severity Currently: Mild Severity Initially: Moderate Pain Intensity: 6 Pain Scale Used: 0-10 Numeric Associated Signs & Symptoms: Positive: Fever, F/C, Myalgia, Cough, Nasal Congestion Related Hx: Smoking - Allergy/Home Medications Allergies/Adverse Reactions: Allergies Allergy/AdvReac Type Severity Reaction Status Date / Time imipramine Allergy Shakes Verified 03/08/18 12:12 quetiapine [From Seroquel] Allergy Shakes Verified 03/08/18 12:12 Home Medications: Home Medications cloNIDine TAB* [Catapres 0.1 MG TAB*] 0.5 - 1 tab TID 03/08/18 [History Confirmed 03/08/18] PMH/Surg Hx/FS Hx/Imm Hx Previously Healthy: Yes - h/o sinus infections in past - Surgical History Surgical History: Yes Surgery Procedure, Year, and Place: tubal ligation. 2 hernia repairs. 2 termination of pregnancies - Family History Known Family History: Positive: Diabetes, Other - asthma in the family Negative: Cardiac Disease - Social History Alcohol Use: None Substance Use Type: Marijuana Substance Use Comment - Amount & Last Used: occasionally; 03/08/18 Smoking Status (MU): Light Every Day Tobacco Smoker Type: Cigarettes Amount Used/How Often: 1/4 PPD Length of Time of Smoking/Using Tobacco: Since Age 11 Have You Smoked in the Last Year: Yes - Immunization History Most Recent Influenza Vaccination: Not the 2017/2018 Season Most Recent Tetanus Shot: utd Most Recent Pneumonia Vaccination: NONE Review of Systems All Other Systems Reviewed And Are Negative: Yes Constitutional: Positive: Fever, Chills, Fatigue ENT: Positive: Sore Throat, Ear Ache, Nasal Discharge, Sinus Congestion, Sinus Pain/Tenderness Respiratory: Positive: Cough Physical Exam Triage Information Reviewed: Yes Appearance: Well-Nourished, Ill-Appearing - mild Vital Signs: Initial Vital Signs Temp 97.9 F 03/08/18 12:13 Pulse 64 03/08/18 12:13 Resp 16 03/08/18 12:13 BP 119/85 03/08/18 12:13 Pulse Ox 98 03/08/18 12:13 Vital Signs Reviewed: Yes Eyes: Positive: Conjunctiva Clear ENT: Positive: Pharynx normal, TMs normal - air fluid levels, no erythema, Sinus tenderness - b/l jez, frontal. Negative: TM bulging, TM dull, TM red, Tonsillar swelling, Tonsillar exudate Neck: Positive: Supple, Nontender, Enlarged Nodes @ Respiratory: Positive: Chest non-tender, Lungs clear, Normal breath sounds, No respiratory distress, No accessory muscle use. Negative: Crackles, Rhonchi, Stridor, Wheezing, Expiration Cardiovascular: Positive: RRR, No Murmur, Pulses Normal, Brisk Capillary Refill Flu Course/Dx - Course Course Of Treatment: sinusitis, ABX given d/t TOB use, increased coughing. - Differential Dx/Diagnosis Differential Diagnosis/HQI/PQRI: Bronchitis, RSV, Upper Respiratory Infection Provider Diagnoses: Sinusitis Discharge - Sign-Out/Discharge Documenting (check all that apply): Patient Departure All imaging exams completed and their final reports reviewed: No Studies - Discharge Plan Condition: Good Disposition: HOME Prescriptions: Amoxicillin/Clavulanate TAB* [Augmentin TAB 875*] 875 mg PO BID #20 tab Patient Education Materials: Sinusitis (ED) Referrals: Fidelia Galvez NP [Primary Care Provider] - Additional Instructions: - Increase fluid intake - Increase rest - Motrin/ tylenol as needed for pain - Antibiotics as directed - Billing Disposition and Condition Condition: GOOD Disposition: Home - Attestation Statements Provider Attestation: I was available for consult. This patient was seen by the JESSIE. The patient was not presented to, seen by, or examined by me. -Todd
== END 2018-03-08 12:46 | disposition home or self-care (01) ==
LOC: UCCORT 12:01
DX: J32.9 Chronic sinusitis, unspecified (principal); Z88.8 Allergy status to other drugs, medicaments and biological substances; F17.210 Nicotine dependence, cigarettes, uncomplicated
CPT/HCPCS: 99212; G0463